=== PATIENT | female | born 1985 | race American Indian/Alaskan Native ===

== ENCOUNTER 2019-12-26 18:37 | Outpatient (CLI) | payer OTHER ==
[2019-12-26 20:42] VITALS: BP 128/57
[2019-12-26] MEDS ORDERED: BICITRA ORAL LIQD 30ML PO ONE (20:43)
[2019-12-26] MEDS ORDERED: SIMETHICONE 80 MG CHEW TAB PO PRN (20:43)
[2019-12-26 21:19] LABS: Bacteria,Urine 2+ /HPF (Negative); Bilirubin,Urine NEG (Negative); Blood,Urine NEG (Negative); Color,Urine Yellow (Yellow); Mucus,Urine FEW /HPF; Protein,Urine <15 mg/dL mg/dL (Negative); Urobilinogen,Urine < 2.0 mg/dL (<2.0)
[2019-12-26] MEDS ORDERED: ACETAMINOPHEN 500 MG TAB PO ONE (21:35)
[2019-12-26] MEDS ORDERED: NITROFURANTOIN MONOHYD/M-CRYST 100 MG CAP PO ONE (21:35)
[2019-12-26 21:42] LABS: Amphetamine Screen,Urine Negative; Benzodiazepines Screen,Urine Negative; Cannabinoid Screen,Urine Negative; Cocaine Screen,Urine Negative; Methadone Screen,Urine Negative; Opiate Screen,Urine Negative
== END 2019-12-26 21:59 | disposition home or self-care (01) ==
LOC: EDSTATUS 19:47 → TRG 19:53 → APU 20:03 → TRG 21:59
PROVIDERS: ATTEND Obstetrics & Gynecology
DX: O26.893 Other specified pregnancy related conditions, third trimester (principal); R10.9 Unspecified abdominal pain; M54.5 Low back pain; Z3A.29 29 weeks gestation of pregnancy
CPT/HCPCS: 59025; 80307; 81001; 87086

== ENCOUNTER 2020-02-17 00:55 | Inpatient (IN) | payer OTHER ==
[2020-02-17] MEDS ORDERED: LACTATED RINGERS 1,000 ML IV ONE (01:35)
[2020-02-17] MEDS ORDERED: AMPICILLIN/NS 2 GM/100 ML 2 GM/100 ML BAG IV ONE (02:03)
[2020-02-17] MEDS ORDERED: OXYTOCIN 10 UNIT/1 ML INJ IM PRN (02:03)
[2020-02-17] MEDS ORDERED: miSOPROStol 200 MCG TAB PR PRN (02:03)
[2020-02-17] MEDS ORDERED: LOPERAMIDE 2 MG CAP PO PRN (02:03)
[2020-02-17] MEDS ORDERED: LIDOCAINE (2%) 20 MG/1 ML VIAL 20 ML MDV INFILTRATI ONE (02:03)
[2020-02-17] MEDS ORDERED: ACETAMINOPHEN 325 MG TAB PO PRN (02:03)
[2020-02-17] MEDS ORDERED: ePHEDrine SULFATE 50 MG/1 ML INJ IV PRN (02:03)
[2020-02-17] MEDS ORDERED: CARBOPROST TROMETHAMINE 250 MCG/1 ML INJ IM PRN (02:03)
[2020-02-17] MEDS ORDERED: MINERAL OIL 30 ML ORAL LIQD PO PRN (02:03)
[2020-02-17] MEDS ORDERED: TERBUTALINE 1 MG/1 ML INJ SUB-Q PRN (02:03)
[2020-02-17 02:18] LABS: Bacteria,Urine 1+ /HPF (Negative); Bilirubin,Urine NEG (Negative); Blood,Urine NEG (Negative); Color,Urine Yellow (Yellow); Mucus,Urine 1+ /HPF
--- NOTE | 2020-02-17 02:18 | History and Physical Report ---
History of Present Illness Date of examination: 02/17/20 Chief complaint: chest pain, concerns about pre-e History of present illness: EDC Confirmation: 03/10/2020 Past History : 6 Term Births: 1 Premature Births: 3 Living Children: 4 Para: 4 Mult. Births: 0 Prev : 0 Prev. attempt? 0 Aborta: 1 Elect. Ab: 1 Spont. Ab: 0 Ectopics: 0 # 1 Delivery date: 1999 Weeks Gestation: 40 Delivery type: Infant Sex: Female weight: 7-13 # 2 Delivery date: 2006 Weeks Gestation: 35 Delivery type: Anesthesia type: epidural Infant Sex: Male weight: 7-15 Comments: IOL - large for dates, PP cardiomyopathy # 3 Delivery date: 2006 Weeks Gestation: 4 Delivery type: EAB Comments: medical # 4 Delivery date: 2007 Weeks Gestation: 35 Delivery type: Anesthesia type: epidural Sex: Male weight: 7-13 Comments: IOL- Pe-E, PP cardiomyopathy # 5 Delivery date: 2014 Weeks Gestation: 32 Delivery type: Infant Sex: Female weight: 9-0 Comments: IOL - large for dates, PP cardiomyopathy Past Medical History: Obesity Cardiomyopathy hx Pre-e w/ previous Past Surgical History: Cholecystectomy (2013) Gangilar cyst (2011) Rotator cuff surgery x 3 Carperal Tunnel Sugery R hand Past Medical History 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 of genital herpes: no Partner hx. of genital herpes: no Varicella/Chicken Pox Status: Unknown TB Risk: no Infection History Comments: Trich Genetic History ADVANCED MATERNAL AGE Congenital Heart Defect: Mom: no Dad: no Pao Disease: Mom: no Dad: no Thalassemia Mom: no Dad: no Neural Tube Defect Mom: no Dad: no Down's Syndrome Mom: no Dad: no Juan-Sachs Mom: no Dad: no Sickle Cell Disease/Trait Mom: no Dad: no Hemophilia Mom: no Dad: no Muscular Dystrophy Mom: no Dad: no Cystic Fibrosis Mom: no Dad: no Jackson Chorea Mom: no Dad: no Mental Retardation Mom: no Dad: no Fragile X Mom: no Dad: no Other Genetic/Chromosomal Disorder Mom: no Dad: no Child w/other defect Mom: no Dad: no Enviromental Exposures Enviromental Exposures Reviewed Xray Exposure: no Medication, drug, or alcohol use since LMP: no Chemical/Other Exposure: no Exposure to Cat Liter: no Hx of Parvovirus (Fifth Disease): no Occupational Exposure to Children: none 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 Allergies (reviewed today): DEMEROL (Critical) MORPHINE (Critical) * BEE STINGS (Critical) PEANUT (Critical) Past History Past Medical History: other (see HPI) Past Surgical History: other (see HPI) 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 Family/Genetic History: other (see HPI) - Obstetrical History Expected Date of Delivery: 03/10/20 Actual Gestation: 36 Week(s) 6 Day(s) : 6 Para: 4 Hx # Term Pregnancies: 1 Number of Pregnancies: 3 Spontaneous Abortions: 0 Induced : 1 Number of Living Children: 4 Medications and Allergies Allergies Allergy/AdvReac Type Severity Reaction Status Date / Time peanut Allergy Intermediate Swelling Verified 12/26/19 20:49 meperidine [From Demerol] Allergy Swelling Verified 02/17/20 03:38 morphine Allergy Itching Verified 02/17/20 03:38 Home Medications Medication Instructions Recorded Confirmed Last Taken Type Nitrofurantoin [place]/M-Cryst 100 mg PO Q12HR #14 capsule 12/26/19 Unknown Rx [Macrobid CAP] Active Meds: Active Medications Acetaminophen (Tylenol) 650 mg PO Q4H PRN PRN Reason: Pain, Mild (1-3) Carboprost Tromethamine (Hemabate) 250 mcg IM ONCE PRN PRN Reason: Uterine Bleeding Ephedrine Sulfate (Ephedrine Sulfate) 10 mg IV Q2M PRN PRN Reason: Hypotension Lactated Ringer's (Lactated Ringers) 1,000 mls @ 999 mls/hr IV BOLUS ONE Stop: 02/17/20 02:35 Lactated Ringer's (Lactated Ringers) 1,000 mls @ 125 mls/hr IV DIRECT MARY Oxytocin/Sodium Chloride (Pitocin/Ns 20 Unit/1000ml Drip) 20 units in 1,000 mls @ 125 mls/hr IV DIRECT MARY Ampicillin Sodium (Ampicillin/Ns 2 Gm/100 Ml) 2 gm in 100 mls @ 100 mls/hr IV ONCE ONE; Protocol Stop: 02/17/20 03:02 Ampicillin Sodium (Ampicillin/Ns 1 Gm/50 Ml) 1 gm in 50 mls @ 100 mls/hr IV Q4HR MARY; Protocol Loperamide HCl (Imodium) 2 mg PO ONCE PRN PRN Reason: give with Hemabate Mineral Oil (Mineral Oil) 30 ml PO QHS PRN PRN Reason: Constipation Misoprostol (Cytotec) 800 mcg [place] ONCE PRN PRN Reason: Uterine Bleeding Oxytocin (Pitocin) 10 unit IM ONCE PRN PRN Reason: Uterine Bleeding Terbutaline Sulfate (Brethine) 0.25 mg SUB-Q ONCE PRN PRN Reason: Hyperstimulation/Hypertonicity Review of Systems All systems: negative - Vital Signs Vital signs: Vital Signs Pulse BP 77 185/81 02/17/20 01:20 02/17/20 01:20 Temp Pulse Resp BP Pulse Ox 99 F 79 18 151/61 97 02/17/20 01:22 02/17/20 02:11 02/17/20 01:22 02/17/20 02:05 02/17/20 02:11 - Physical Exam Breasts: Positive: normal Cardiovascular: Regular rate Lungs: Positive: Clear to auscultation, Normal air movement Abdomen: Positive: normal appearance, soft Genitourinary (Female): Positive: normal external genitalia Vulva: both: normal Vagina: Positive: normal moisture Uterus: Positive: normal size, normal contour Anus/Rectum: Positive: normal perianal skin Extremities: Positive: normal Deep Tendon Reflex Grade: Normal +2 - Obstetrical Uterine Contraction Monitor Mode: External Cervical Dilatation: 3 Cervical Effacement Percentage: 40 station: -4 Uterine Contraction Pattern: Absent Results All other labs normal. Assessment and Plan 34y/o @ 36+6 weeks presents with left sided chest pain that radiates to her back rated 9/10. complicated by obesity, GDM dx in the first trimester, hx pre-e and Cardiomegaly, cardiomyopathy. EFW by AMFM 02/06 was 8#0oz (>99th%). GBS +. bedside u/s verified cephalic presentation, bpp 8/8. Plan to admit for pre-e. Patient asking questions about perusing c/s vs vaginal , advised lead section supervisor did not recommend operative d/t cardiac reasons. she has hx of 9lb vaginal delivery. Plan of care reviewed with patient, advised once all testing comes back the method of delivery can be discussed further. Dr. Nicholson consulted for plan of care. - Patient Problems (1) 36 weeks gestation of Current Visit: Yes Status: Acute (2) BMI 45.0-49.9, adult Current Visit: Yes Status: Acute Plan to address problem: bpp 8, cephalic presentation continuos efm/toco limited by maternal habitus (3) Cardiomyopathy Current Visit: Yes Status: Acute Plan to address problem: Strict I&O Total IVF 75ml/hr CXR and EKG (4) Diet controlled gestational diabetes mellitus (GDM) in third trimester Current Visit: Yes Status: Acute Plan to address problem: GDM diet controlled (5) GBS (group B Streptococcus carrier), +RV culture, currently Current Visit: Yes Status: Acute Plan to address problem: Ampicillin q4hr when in active labor (6) Pre-eclampsia Current Visit: Yes Status: Acute Qualifiers: Trimester: third trimester Qualified Code(s): O14.93 - Unspecified pre- eclampsia, third trimester Plan to address problem: Mag sulfate for neuro protection Mag levels q6hr strict I&O (7) Chest pain Current Visit: Yes Status: Resolved Plan to address problem: EKG and chest x-ray Bictra for acid reflux
[2020-02-17] MEDS ORDERED: OXYTOCIN 20 UNIT/1000ML DRIP 20 UNITS/1,000 ML BAG IV SCH (03:00)
[2020-02-17] MEDS ORDERED: LACTATED RINGERS 1,000 ML IV SCH (03:00)
[2020-02-17] MEDS ORDERED: BICITRA ORAL LIQD 30ML PO ONE (03:04)
[2020-02-17] MEDS ORDERED: MAGNESIUM SULFATE 4 GM/100 ML BAG IV ONE (03:04)
--- NOTE | 2020-02-17 03:27 | Ultrasound Report ---
LIMITED OBSTETRICAL ULTRASOUND. HISTORY: Evaluate biophysical profile and presentation. FINDINGS: A single viable intrauterine has heart tones of 150 bpm. position is vertex. Placenta is anteriorly located. Biophysical profile is normal at 01/26. Amniotic fluid index is normal at 7.8 cm. IMPRESSION: 1. Single viable intrauterine in the vertex presentation. 2. Biophysical profile 01/26. Signer Name: Brody Solitario MD Signed: 02/17/2020 3:22 AM Workstation Name: [id number]
[2020-02-17 03:47] LABS: Hematocrit 23.9 % (30.3-42.9); Hemoglobin 7.8 gm/dl (10.1-14.3); Mean Corpuscular HGB Conc 33 % (30-34); Platelet Count 226 K/mm3 (140-440); Red Blood Count 3.64 M/mm3 (3.65-5.03); Red Cell Distribution Width 19.1 % (13.2-15.2)
[2020-02-17 03:50] LABS: Mean Corpuscular Volume 66 fl (79-97)
--- NOTE | 2020-02-17 03:50 | XRay Report ---
CHEST 1 VIEW INDICATION: chest pain. COMPARISON: None. FINDINGS: Support devices: None. Heart: Moderate cardiomegaly. Lungs/Pleura: No acute air space or interstitial disease. Additional findings: None. IMPRESSION: Moderate cardiomegaly. Signer Name: Brody Solitario MD Signed: 02/17/2020 3:45 AM Workstation Name: [id number]
[2020-02-17 04:02] LABS: Alanine Aminotransferase 21 units/L (7-56)
[2020-02-17 04:03] LABS: Alanine Aminotransferase 22 units/L (7-56); Albumin 3.2 g/dL (3.9-5); Blood Urea Nitrogen 7 mg/dL (7-17); Calcium 8.9 mg/dL (8.4-10.2); Hemolysis Index 7
[2020-02-17 04:04] LABS: BUN/Creatinine Ratio 18
[2020-02-17 04:19] LABS: Uric Acid 5.6 mg/dL (3.5-7.6)
[2020-02-17] MEDS: MAGNESIUM SULFATE 40GM/1000ML 40 GM/1,000 ML BAG IV SCH ×2 (04:32→22:42)
[2020-02-17] MEDS ORDERED: hydrALAZINE 20 MG/1 ML INJ IV ONE ×2 (06:18→11:07)
[2020-02-17] MEDS ORDERED: fentaNYL 100 MCG/2 ML INJ IV ONE (06:28)
--- NOTE | 2020-02-17 06:41 | Event Note ---
Date: 02/17/20 cxr shows moderate cardiomegaly, waiting on EKG results. Patient states pain in left upper chest/shoulder/back went away but has now returned. b/p remains elevated - ordered dose of labetalol IV. after further discussion, patient states she would like to try for vaginal .
[2020-02-17] MEDS: AMPICILLIN/NS 1 GM/50 ML 1 GM/50 ML BAG IV SCH ×4 (08:56→21:12)
[2020-02-17] MEDS ORDERED: OXYTOCIN DRIP 30 UNITS/500 ML BAG IV SCH (09:00)
[2020-02-17] MEDS ORDERED: fentaNYL 100 MCG/2 ML INJ ONE (09:08)
--- NOTE | 2020-02-17 09:13 | Progress Note ---
Assessment and Plan Pt is a 34 y.o. @ 36, wks who presented to L&D after having chest pain and concerns for pre e. IOL was scheduled for February 17, but now will proceed with IOL. [facility] consulted, Dr. Scott and will come and evaluate patient at bedside. Consulted with Dr. Mark and will start pitocin, and get cardiac enzymes. EKG already ordered and a call placed for it to be completed. Will continue to monitor blood pressures and progress of labor. Plan of care explained to pt and RN taking care of pt and they both verbalized understanding. Subjective - Subjective Date of service: 02/17/20 (Continues to have chest pain) Principal diagnosis: IUP @ 36 wks, pre e, on mag, hx of cardiomyopathy Objective - Vital Signs Vital Signs: Vital Signs - 12hr 02/17/20 02/17/20 02/17/20 01:20 01:21 01:22 Temperature 99 F Pulse Rate 77 73 76 Respiratory 18 Rate Blood Pressure 185/81 Blood Pressure 185/81 [Left] O2 Sat by Pulse 99 99 Oximetry 02/17/20 02/17/20 02/17/20 01:26 01:31 01:35 Temperature Pulse Rate 73 96 H 73 Respiratory Rate Blood Pressure 164/71 Blood Pressure [Left] O2 Sat by Pulse 99 99 Oximetry 02/17/20 02/17/20 02/17/20 01:36 01:41 01:46 Temperature Pulse Rate 71 74 72 Respiratory Rate Blood Pressure Blood Pressure [Left] O2 Sat by Pulse 100 99 99 Oximetry 02/17/20 02/17/20 02/17/20 01:50 01:51 01:56 Temperature Pulse Rate 67 75 79 Respiratory Rate Blood Pressure 166/71 Blood Pressure [Left] O2 Sat by Pulse 100 98 Oximetry 02/17/20 02/17/20 02/17/20 02:01 02:05 02:06 Temperature Pulse Rate 78 73 80 Respiratory Rate Blood Pressure 151/61 Blood Pressure [Left] O2 Sat by Pulse 98 99 Oximetry 02/17/20 02/17/20 02/17/20 02:11 04:06 04:08 Temperature Pulse Rate 79 71 76 Respiratory Rate Blood Pressure 190/91 Blood Pressure [Left] O2 Sat by Pulse 97 97 Oximetry 02/17/20 02/17/20 02/17/20 04:13 04:14 04:18 Temperature Pulse Rate 79 80 79 Respiratory Rate Blood Pressure 176/82 Blood Pressure [Left] O2 Sat by Pulse 97 97 Oximetry 02/17/20 02/17/20 02/17/20 04:19 04:23 04:28 Temperature Pulse Rate 79 79 82 Respiratory Rate Blood Pressure 183/85 Blood Pressure [Left] O2 Sat by Pulse 99 99 Oximetry 02/17/20 02/17/20 02/17/20 04:29 04:33 04:38 Temperature Pulse Rate 80 76 106 H Respiratory Rate Blood Pressure 168/75 195/94 Blood Pressure [Left] O2 Sat by Pulse 99 99 Oximetry 02/17/20 02/17/20 02/17/20 04:43 04:48 04:53 Temperature Pulse Rate 73 73 89 Respiratory Rate Blood Pressure Blood Pressure [Left] O2 Sat by Pulse 100 100 98 Oximetry 02/17/20 02/17/20 02/17/20 04:58 05:03 05:08 Temperature Pulse Rate 80 75 79 Respiratory Rate Blood Pressure Blood Pressure [Left] O2 Sat by Pulse 98 99 99 Oximetry 02/17/20 02/17/20 02/17/20 05:12 05:13 05:18 Temperature Pulse Rate 76 91 H 78 Respiratory Rate Blood Pressure 218/93 Blood Pressure [Left] O2 Sat by Pulse 99 99 Oximetry 02/17/20 02/17/20 02/17/20 05:23 05:27 05:28 Temperature Pulse Rate 75 75 77 Respiratory Rate Blood Pressure 193/85 Blood Pressure [Left] O2 Sat by Pulse 98 95 Oximetry 02/17/20 02/17/20 02/17/20 05:29 05:33 05:38 Temperature Pulse Rate 84 91 H 75 Respiratory Rate Blood Pressure Blood Pressure [Left] O2 Sat by Pulse 94 98 97 Oximetry 02/17/20 02/17/20 02/17/20 05:43 05:47 05:48 Temperature Pulse Rate 75 80 82 Respiratory Rate Blood Pressure 204/89 Blood Pressure [Left] O2 Sat by Pulse 98 94 96 Oximetry 02/17/20 02/17/20 02/17/20 05:52 05:53 05:57 Temperature Pulse Rate 81 77 77 Respiratory Rate Blood Pressure 185/88 Blood Pressure [Left] O2 Sat by Pulse 94 95 Oximetry 02/17/20 02/17/20 02/17/20 05:58 05:59 06:03 Temperature Pulse Rate 75 80 73 Respiratory Rate Blood Pressure Blood Pressure [Left] O2 Sat by Pulse 96 91 97 Oximetry 02/17/20 02/17/20 02/17/20 06:08 06:13 06:14 Temperature Pulse Rate 78 75 72 Respiratory Rate Blood Pressure 208/88 Blood Pressure [Left] O2 Sat by Pulse 95 97 94 Oximetry 02/17/20 02/17/20 02/17/20 06:16 06:18 06:23 Temperature Pulse Rate 77 74 72 Respiratory Rate Blood Pressure 182/81 Blood Pressure [Left] O2 Sat by Pulse 98 99 Oximetry 02/17/20 02/17/20 02/17/20 06:27 06:28 06:33 Temperature Pulse Rate 75 77 77 Respiratory Rate Blood Pressure 198/89 Blood Pressure [Left] O2 Sat by Pulse 99 99 Oximetry 02/17/20 02/17/20 02/17/20 06:38 06:42 06:43 Temperature Pulse Rate 86 81 77 Respiratory Rate Blood Pressure 192/78 192/78 Blood Pressure [Left] O2 Sat by Pulse 100 97 Oximetry 02/17/20 02/17/20 02/17/20 06:48 06:53 06:57 Temperature Pulse Rate 74 77 80 Respiratory Rate Blood Pressure 197/79 Blood Pressure [Left] O2 Sat by Pulse 99 100 Oximetry 02/17/20 02/17/20 02/17/20 06:58 07:03 07:08 Temperature 98.4 F Pulse Rate 76 78 79 Respiratory 22 Rate Blood Pressure Blood Pressure 166/74 [Left] O2 Sat by Pulse 98 97 98 Oximetry 02/17/20 02/17/20 02/17/20 07:13 07:18 07:23 Temperature Pulse Rate 81 77 76 Respiratory Rate Blood Pressure Blood Pressure [Left] O2 Sat by Pulse 98 100 99 Oximetry 02/17/20 02/17/20 02/17/20 07:28 07:29 07:33 Temperature Pulse Rate 83 79 81 Respiratory Rate Blood Pressure 219/103 168/78 Blood Pressure [Left] O2 Sat by Pulse 99 100 Oximetry 02/17/20 02/17/20 02/17/20 07:38 07:41 07:43 Temperature Pulse Rate 93 H 81 82 Respiratory Rate Blood Pressure 166/74 Blood Pressure [Left] O2 Sat by Pulse 98 98 Oximetry 02/17/20 02/17/20 02/17/20 07:48 07:50 07:53 Temperature Pulse Rate 74 84 79 Respiratory Rate Blood Pressure Blood Pressure [Left] O2 Sat by Pulse 96 91 99 Oximetry 02/17/20 02/17/20 02/17/20 07:56 07:57 07:58 Temperature Pulse Rate 77 74 83 Respiratory Rate Blood Pressure 181/84 Blood Pressure [Left] O2 Sat by Pulse 94 95 Oximetry 02/17/20 02/17/20 02/17/20 08:03 08:04 08:08 Temperature Pulse Rate 70 77 73 Respiratory Rate Blood Pressure Blood Pressure [Left] O2 Sat by Pulse 97 93 94 Oximetry 02/17/20 02/17/20 02/17/20 08:12 08:13 08:18 Temperature Pulse Rate 75 88 81 Respiratory Rate Blood Pressure 152/72 Blood Pressure [Left] O2 Sat by Pulse 93 95 98 Oximetry 02/17/20 02/17/20 02/17/20 08:23 08:27 08:28 Temperature Pulse Rate 88 81 78 Respiratory Rate Blood Pressure 160/75 Blood Pressure [Left] O2 Sat by Pulse 98 99 Oximetry 02/17/20 02/17/20 02/17/20 08:33 08:38 08:41 Temperature Pulse Rate 80 91 H 74 Respiratory Rate Blood Pressure 172/80 Blood Pressure [Left] O2 Sat by Pulse 98 99 91 Oximetry 02/17/20 02/17/20 02/17/20 08:43 08:46 08:48 Temperature Pulse Rate 85 88 84 Respiratory Rate Blood Pressure Blood Pressure [Left] O2 Sat by Pulse 100 93 99 Oximetry 02/17/20 02/17/20 02/17/20 08:53 08:57 08:58 Temperature Pulse Rate 82 82 82 Respiratory Rate Blood Pressure 176/81 Blood Pressure [Left] O2 Sat by Pulse 97 98 Oximetry 02/17/20 02/17/20 09:03 09:08 Temperature Pulse Rate 83 87 Respiratory Rate Blood Pressure Blood Pressure [Left] O2 Sat by Pulse 98 98 Oximetry - Exam Breasts: deferred Cardiovascular: Regular rate, Normal S1, Normal S2 Lungs: Clear to auscultation Abdomen: Present: normal appearance, soft Vulva: both: normal Uterus: Present: normal FHR: auscultation normal Uterine Contraction Monitor Mode: External Cervical Dilatation: 3 Cervical Effacement Percentage: 40 station: -4 Uterine Contraction Pattern: Regular Uterine Contraction Intensity: Mild Extremities: edema (+1 to +2) Deep Tendon Reflex Grade: Normal +2 - Labs Labs: Abnormal Labs 02/17/20 02/17/20 02/17/20 03:25 03:25 03:25 RBC 3.64 L Hgb 7.8 L Hct 23.9 L MCV 66 L MCH 22 L RDW 19.1 H Potassium 3.5 L Creatinine 0.4 L 0.4 L Glucose 111 H Lactate Dehydrogenase 266 H Total Protein 6.0 L Albumin 3.2 L Laboratory Results - last 24 hr 02/17/20 02/17/20 02/17/20 01:22 03:25 03:25 WBC 6.3 RBC 3.64 L Hgb 7.8 L Hct 23.9 L MCV 66 L MCH 22 L MCHC 33 RDW 19.1 H Plt Count 226 Sodium Potassium Chloride Carbon Dioxide Anion Gap BUN Creatinine Estimated GFR BUN/Creatinine Ratio Glucose Uric Acid Calcium Total Bilirubin AST ALT Alkaline Phosphatase Lactate Dehydrogenase Total Protein Albumin Albumin/Globulin Ratio Urine Color Yellow Urine Turbidity Clear Urine pH 6.0 Ur Specific [place] 1.021 Urine Protein 100 mg/dl Urine Glucose (UA) Neg Urine Ketones Neg Urine Blood Neg Urine Nitrite Neg Urine Bilirubin Neg Urine Urobilinogen 4.0 Ur Leukocyte Esterase Lg Urine WBC (Auto) 5.0 Urine RBC (Auto) 4.0 U Epithel Cells (Auto) 4.0 Urine Bacteria (Auto) 1+ Urine Mucus 1+ Syphilis IgG Antibody Blood Type A POSITIVE Antibody Screen Negative 02/17/20 02/17/20 02/17/20 03:25 03:25 03:25 WBC RBC Hgb Hct MCV MCH MCHC RDW Plt Count Sodium 138 Potassium 3.5 L Chloride 102.8 Carbon Dioxide 22 Anion Gap 17 BUN 7 Creatinine 0.4 L 0.4 L Estimated GFR > 60 > 60 BUN/Creatinine Ratio 18 Glucose 111 H Uric Acid 5.6 Calcium 8.9 Total Bilirubin 0.30 AST 28 27 ALT 21 22 Alkaline Phosphatase 97 Lactate Dehydrogenase 266 H Total Protein 6.0 L Albumin 3.2 L Albumin/Globulin Ratio 1.1 Urine Color Urine Turbidity Urine pH Ur Specific [place] Urine Protein Urine Glucose (UA) Urine Ketones Urine Blood Urine Nitrite Urine Bilirubin Urine Urobilinogen Ur Leukocyte Esterase Urine WBC (Auto) Urine RBC (Auto) U Epithel Cells (Auto) Urine Bacteria (Auto) Urine Mucus Syphilis IgG Antibody Nonreactive Blood Type Antibody Screen
--- NOTE | 2020-02-17 09:28 | Event Note ---
Date: 02/17/20 (Dr. Scott at bedside.) Dr. Scott with [facility] at bedside evaluating patient. States that labs and EKG reviewed and nothing acute seen. Okay for patient to have a vaginal delivery.
--- NOTE | 2020-02-17 09:41 | Consultation ---
History of Present Illness Consult date: 02/17/20 Consult reason: chest pain History of present illness: Patient seen in Labor delivery, brought in early for pre-eclampsia. HTN being managed effectively so far with IV labetalol per protocol. She has atypical, sharp left sided over left breast, continuous since yesterday, nonradiating, improved with analgesics, reproducible to palpation. No prior history of CAD, has had HTN issues with prior pregnancies that have all resolved after delivery. EKG shows sinus LVH (left ventricular hypertrophy), CXR shows cardiomegaly compatible with LVH on ECG. No edema seen. No CHF by exam, cardiac exam including pulses are normal Trop pending. Plan No evidence of acute cardiac process at this time. No CHF or ischemic changes. Advise proceed with delivery Control BP with labetalol IV, transition to PO if necessary after delivery. Control CP with analgesics. Will see PRN Past History Past Medical History: hypertension Social history: denies: smoking Medications and Allergies Allergies Allergy/AdvReac Type Severity Reaction Status Date / Time peanut Allergy Intermediate Swelling Verified 12/26/19 20:49 meperidine [From Demerol] Allergy Swelling Verified 02/17/20 03:38 morphine Allergy Itching Verified 02/17/20 03:38 Home Medications Medication Instructions Recorded Confirmed Last Taken Type Iron 1 tab PO DAILY 02/17/20 02/17/20 3 Days Ago History ~02/14/20 Vitamin 1 tab PO DAILY 02/17/20 02/17/20 2 Days Ago History ~02/15/20 Active Meds: Active Medications Acetaminophen (Tylenol) 650 mg PO Q4H PRN PRN Reason: Pain, Mild (1-3) Carboprost Tromethamine (Hemabate) 250 mcg IM ONCE PRN PRN Reason: Uterine Bleeding Ephedrine Sulfate (Ephedrine Sulfate) 10 mg IV Q2M PRN PRN Reason: Hypotension Lactated Ringer's (Lactated Ringers) 1,000 mls @ 25 mls/hr IV DIRECT MARY Last Admin: 02/17/20 04:33 Dose: 25 mls/hr Documented by: Oxytocin/Sodium Chloride (Pitocin/Ns 20 Unit/1000ml Drip) 20 units in 1,000 mls @ 125 mls/hr IV DIRECT MARY Ampicillin Sodium (Ampicillin/Ns 1 Gm/50 Ml) 1 gm in 50 mls @ 100 mls/hr IV Q4HR MARY; Protocol Last Admin: 02/17/20 08:56 Dose: 100 mls/hr Documented by: Magnesium Sulfate (Magnesium Sulfate 40gm/1000ml) 40 gm in 1,000 mls @ 50 mls/hr IV DIRECT MARY Last Admin: 02/17/20 04:32 Dose: 2 gm/hr, 50 mls/hr Documented by: Oxytocin/Sodium Chloride (Pitocin/Ns 30 Unit/500ml) 30 units in 500 mls @ 2 mls/hr IV TITR MARY; Protocol Last Titration: 02/17/20 09:29 Dose: 4 mls/hr, 4 mls/hr Documented by: Loperamide HCl (Imodium) 2 mg PO ONCE PRN PRN Reason: give with Hemabate Mineral Oil (Mineral Oil) 30 ml PO QHS PRN PRN Reason: Constipation Misoprostol (Cytotec) 800 mcg [place] ONCE PRN PRN Reason: Uterine Bleeding Oxytocin (Pitocin) 10 unit IM ONCE PRN PRN Reason: Uterine Bleeding Terbutaline Sulfate (Brethine) 0.25 mg SUB-Q ONCE PRN PRN Reason: Hyperstimulation/Hypertonicity Review of Systems All systems: negative (Nothing further from CV standpoint.) Physical Examination Vital Signs Pulse BP 77 185/81 02/17/20 01:20 02/17/20 01:20 General appearance: no acute distress Neck: Positive: neck supple Cardiac: Positive: Reg Rate and Rhythm, S1/S2. Negative: Gallop Lungs: Positive: Normal Exam Neuro: Positive: Grossly Intact Abdomen: Positive: Soft. Negative: Pulsations/Bruits Results 02/17/20 03:25 02/17/20 03:25 Cardiac Enzymes 02/17/20 02/17/20 Range/Units 03:25 03:25 AST 28 27 (5-40) units/L Lactate Dehydrogenase 266 H (91-180) units/L CBC 02/17/20 Range/Units 03:25 WBC 6.3 (4.5-11.0) K/mm3 RBC 3.64 L (3.65-5.03) M/mm3 Hgb 7.8 L (10.1-14.3) gm/dl Hct 23.9 L (30.3-42.9) % Plt Count 226 (140-440) K/mm3 Comprehensive Metabolic Panel 02/17/20 02/17/20 Range/Units 03:25 03:25 Sodium 138 (137-145) mmol/L Potassium 3.5 L (3.6-5.0) mmol/L Chloride 102.8 (98-107) mmol/L Carbon Dioxide 22 (22-30) mmol/L BUN 7 (7-17) mg/dL Creatinine 0.4 L 0.4 L (0.6-1.2) mg/dL Glucose 111 H (65-100) mg/dL Calcium 8.9 (8.4-10.2) mg/dL AST 28 27 (5-40) units/L ALT 21 22 (7-56) units/L Alkaline Phosphatase 97 (35-129) units/L Total Protein 6.0 L (6.3-8.2) g/dL Albumin 3.2 L (3.9-5) g/dL EKG interpretations - EKG Sinus rhythms and dysrhythmias: sinus rhythm Chamber hypertrophy or enlargement: left ventricular hypertro
--- NOTE | 2020-02-17 10:30 | Event Note ---
Date: 02/17/20 Provider at beside to answer any questions pt has regarding plan of care. Pt seen by cardiology with thanks. She does desire an epidural. I advised that she will be seen by anesthesia and consulted at that time for placement. She does not desire it at this time but does c/o feeling contractions. I d/w diagnosis of sever pre E and need for magnesium post as well as close management of her fluid intake given previous h/o cardiac issues as per the pt. Pt expressed understanding and agrees with the plan of care and has no questions at this time.
[2020-02-17] MEDS ORDERED: fentaNYL 100 MCG/2 ML INJ IV PRN (11:55)
[2020-02-17] MEDS: ACETAMINOPHEN 500 MG TAB PO PRN ×2 (14:31→21:16)
--- NOTE | 2020-02-17 15:34 | Progress Note ---
Assessment and Plan A: 34 y.o. @ 36+ wks, IOL d/t pre e, GDM (diet controlled), Feeling some ctxs. Cervical exam /-4. P: Continue with Pitocin per protocol. Reassess labor as needed. Subjective - Subjective Date of service: 02/17/20 (Pt feeling some ctxs) Principal diagnosis: IUP, IOL @ 36 wks, pre e, on mag, hx of cardiomyopathy Objective - Vital Signs Vital Signs: Vital Signs - 12hr 02/17/20 02/17/20 02/17/20 04:06 04:08 04:13 Temperature Pulse Rate 71 76 79 Respiratory Rate Blood Pressure 190/91 Blood Pressure [Left] O2 Sat by Pulse 97 97 Oximetry 02/17/20 02/17/20 02/17/20 04:14 04:18 04:19 Temperature Pulse Rate 80 79 79 Respiratory Rate Blood Pressure 176/82 183/85 Blood Pressure [Left] O2 Sat by Pulse 97 Oximetry 02/17/20 02/17/20 02/17/20 04:23 04:28 04:29 Temperature Pulse Rate 79 82 80 Respiratory Rate Blood Pressure 168/75 Blood Pressure [Left] O2 Sat by Pulse 99 99 Oximetry 02/17/20 02/17/20 02/17/20 04:33 04:38 04:43 Temperature Pulse Rate 76 106 H 73 Respiratory Rate Blood Pressure 195/94 Blood Pressure [Left] O2 Sat by Pulse 99 99 100 Oximetry 02/17/20 02/17/20 02/17/20 04:48 04:53 04:58 Temperature Pulse Rate 73 89 80 Respiratory Rate Blood Pressure Blood Pressure [Left] O2 Sat by Pulse 100 98 98 Oximetry 02/17/20 02/17/20 02/17/20 05:03 05:08 05:12 Temperature Pulse Rate 75 79 76 Respiratory Rate Blood Pressure 218/93 Blood Pressure [Left] O2 Sat by Pulse 99 99 Oximetry 02/17/20 02/17/20 02/17/20 05:13 05:18 05:23 Temperature Pulse Rate 91 H 78 75 Respiratory Rate Blood Pressure Blood Pressure [Left] O2 Sat by Pulse 99 99 98 Oximetry 02/17/20 02/17/20 02/17/20 05:27 05:28 05:29 Temperature Pulse Rate 75 77 84 Respiratory Rate Blood Pressure 193/85 Blood Pressure [Left] O2 Sat by Pulse 95 94 Oximetry 02/17/20 02/17/20 02/17/20 05:33 05:38 05:43 Temperature Pulse Rate 91 H 75 75 Respiratory Rate Blood Pressure 204/89 Blood Pressure [Left] O2 Sat by Pulse 98 97 98 Oximetry 02/17/20 02/17/20 02/17/20 05:47 05:48 05:52 Temperature Pulse Rate 80 82 81 Respiratory Rate Blood Pressure Blood Pressure [Left] O2 Sat by Pulse 94 96 94 Oximetry 02/17/20 02/17/20 02/17/20 05:53 05:57 05:58 Temperature Pulse Rate 77 77 75 Respiratory Rate Blood Pressure 185/88 Blood Pressure [Left] O2 Sat by Pulse 95 96 Oximetry 02/17/20 02/17/20 02/17/20 05:59 06:03 06:08 Temperature Pulse Rate 80 73 78 Respiratory Rate Blood Pressure Blood Pressure [Left] O2 Sat by Pulse 91 97 95 Oximetry 02/17/20 02/17/20 02/17/20 06:13 06:14 06:16 Temperature Pulse Rate 75 72 77 Respiratory Rate Blood Pressure 208/88 182/81 Blood Pressure [Left] O2 Sat by Pulse 97 94 Oximetry 02/17/20 02/17/20 02/17/20 06:18 06:23 06:27 Temperature Pulse Rate 74 72 75 Respiratory Rate Blood Pressure 198/89 Blood Pressure [Left] O2 Sat by Pulse 98 99 Oximetry 02/17/20 02/17/20 02/17/20 06:28 06:33 06:38 Temperature Pulse Rate 77 77 86 Respiratory Rate Blood Pressure Blood Pressure [Left] O2 Sat by Pulse 99 99 100 Oximetry 02/17/20 02/17/20 02/17/20 06:42 06:43 06:48 Temperature Pulse Rate 81 77 74 Respiratory Rate Blood Pressure 192/78 192/78 Blood Pressure [Left] O2 Sat by Pulse 97 99 Oximetry 02/17/20 02/17/20 02/17/20 06:53 06:57 06:58 Temperature Pulse Rate 77 80 76 Respiratory Rate Blood Pressure 197/79 Blood Pressure [Left] O2 Sat by Pulse 100 98 Oximetry 02/17/20 02/17/20 02/17/20 07:03 07:08 07:13 Temperature 98.4 F Pulse Rate 78 79 81 Respiratory 22 Rate Blood Pressure Blood Pressure 166/74 [Left] O2 Sat by Pulse 97 98 98 Oximetry 02/17/20 02/17/20 02/17/20 07:18 07:23 07:28 Temperature Pulse Rate 77 76 83 Respiratory Rate Blood Pressure 219/103 Blood Pressure [Left] O2 Sat by Pulse 100 99 99 Oximetry 02/17/20 02/17/20 02/17/20 07:29 07:33 07:38 Temperature Pulse Rate 79 81 93 H Respiratory Rate Blood Pressure 168/78 Blood Pressure [Left] O2 Sat by Pulse 100 98 Oximetry 02/17/20 02/17/20 02/17/20 07:41 07:43 07:48 Temperature Pulse Rate 81 82 74 Respiratory Rate Blood Pressure 166/74 Blood Pressure [Left] O2 Sat by Pulse 98 96 Oximetry 02/17/20 02/17/20 02/17/20 07:50 07:53 07:56 Temperature Pulse Rate 84 79 77 Respiratory Rate Blood Pressure 181/84 Blood Pressure [Left] O2 Sat by Pulse 91 99 Oximetry 02/17/20 02/17/20 02/17/20 07:57 07:58 08:03 Temperature Pulse Rate 74 83 70 Respiratory Rate Blood Pressure Blood Pressure [Left] O2 Sat by Pulse 94 95 97 Oximetry 02/17/20 02/17/20 02/17/20 08:04 08:08 08:12 Temperature Pulse Rate 77 73 75 Respiratory Rate Blood Pressure 152/72 Blood Pressure [Left] O2 Sat by Pulse 93 94 93 Oximetry 02/17/20 02/17/20 02/17/20 08:13 08:18 08:23 Temperature Pulse Rate 88 81 88 Respiratory Rate Blood Pressure Blood Pressure [Left] O2 Sat by Pulse 95 98 98 Oximetry 02/17/20 02/17/20 02/17/20 08:27 08:28 08:33 Temperature Pulse Rate 81 78 80 Respiratory Rate Blood Pressure 160/75 Blood Pressure [Left] O2 Sat by Pulse 99 98 Oximetry 02/17/20 02/17/20 02/17/20 08:38 08:41 08:43 Temperature Pulse Rate 91 H 74 85 Respiratory Rate Blood Pressure 172/80 Blood Pressure [Left] O2 Sat by Pulse 99 91 100 Oximetry 02/17/20 02/17/20 02/17/20 08:46 08:48 08:53 Temperature Pulse Rate 88 84 82 Respiratory Rate Blood Pressure Blood Pressure [Left] O2 Sat by Pulse 93 99 97 Oximetry 02/17/20 02/17/20 02/17/20 08:57 08:58 09:03 Temperature Pulse Rate 82 82 83 Respiratory Rate Blood Pressure 176/81 Blood Pressure [Left] O2 Sat by Pulse 98 98 Oximetry 02/17/20 02/17/20 02/17/20 09:08 09:13 09:15 Temperature Pulse Rate 87 85 92 H Respiratory Rate Blood Pressure 167/80 Blood Pressure [Left] O2 Sat by Pulse 98 96 93 Oximetry 02/17/20 02/17/20 02/17/20 09:18 09:20 09:23 Temperature Pulse Rate 86 84 87 Respiratory Rate Blood Pressure Blood Pressure [Left] O2 Sat by Pulse 91 94 97 Oximetry 02/17/20 02/17/20 02/17/20 09:26 09:28 09:29 Temperature Pulse Rate 79 75 87 Respiratory Rate Blood Pressure 169/79 169/79 Blood Pressure [Left] O2 Sat by Pulse 99 Oximetry 02/17/20 02/17/20 02/17/20 09:33 09:34 09:38 Temperature Pulse Rate 85 87 87 Respiratory Rate Blood Pressure Blood Pressure [Left] O2 Sat by Pulse 95 92 96 Oximetry 02/17/20 02/17/20 02/17/20 09:42 09:43 09:46 Temperature Pulse Rate 83 83 85 Respiratory Rate Blood Pressure 149/76 Blood Pressure [Left] O2 Sat by Pulse 96 93 Oximetry 02/17/20 02/17/20 02/17/20 09:48 09:51 09:53 Temperature Pulse Rate 87 88 89 Respiratory Rate Blood Pressure Blood Pressure [Left] O2 Sat by Pulse 93 93 94 Oximetry 02/17/20 02/17/20 02/17/20 09:56 09:58 10:03 Temperature Pulse Rate 85 83 85 Respiratory Rate Blood Pressure 152/70 Blood Pressure [Left] O2 Sat by Pulse 92 99 98 Oximetry 02/17/20 02/17/20 02/17/20 10:06 10:08 10:11 Temperature Pulse Rate 100 H 85 80 Respiratory Rate Blood Pressure 163/77 Blood Pressure [Left] O2 Sat by Pulse 91 99 Oximetry 02/17/20 02/17/20 02/17/20 10:12 10:13 10:18 Temperature Pulse Rate 86 85 86 Respiratory Rate Blood Pressure Blood Pressure [Left] O2 Sat by Pulse 93 93 95 Oximetry 02/17/20 02/17/20 02/17/20 10:21 10:23 10:26 Temperature Pulse Rate 87 90 87 Respiratory Rate Blood Pressure 161/75 Blood Pressure [Left] O2 Sat by Pulse 93 92 92 Oximetry 02/17/20 02/17/20 02/17/20 10:28 10:32 10:33 Temperature Pulse Rate 88 90 88 Respiratory Rate Blood Pressure Blood Pressure [Left] O2 Sat by Pulse 97 91 92 Oximetry 02/17/20 02/17/20 02/17/20 10:38 10:41 10:43 Temperature Pulse Rate 86 82 84 Respiratory Rate Blood Pressure 156/68 Blood Pressure [Left] O2 Sat by Pulse 92 92 Oximetry 02/17/20 02/17/20 02/17/20 10:44 10:48 10:49 Temperature Pulse Rate 84 88 88 Respiratory Rate Blood Pressure Blood Pressure [Left] O2 Sat by Pulse 93 97 93 Oximetry 02/17/20 02/17/20 02/17/20 10:53 10:55 10:56 Temperature Pulse Rate 87 87 86 Respiratory Rate Blood Pressure 170/79 Blood Pressure [Left] O2 Sat by Pulse 92 93 Oximetry 02/17/20 02/17/20 02/17/20 10:58 11:01 11:03 Temperature Pulse Rate 91 H 92 H 89 Respiratory Rate Blood Pressure Blood Pressure [Left] O2 Sat by Pulse 97 92 97 Oximetry 02/17/20 02/17/20 02/17/20 11:08 11:12 11:13 Temperature Pulse Rate 90 84 88 Respiratory Rate Blood Pressure 171/73 Blood Pressure [Left] O2 Sat by Pulse 99 98 Oximetry 02/17/20 02/17/20 02/17/20 11:18 11:23 11:28 Temperature Pulse Rate 90 92 H 92 H Respiratory Rate Blood Pressure 166/83 Blood Pressure [Left] O2 Sat by Pulse 98 99 99 Oximetry 02/17/20 02/17/20 02/17/20 11:33 11:36 11:38 Temperature Pulse Rate 90 87 92 H Respiratory Rate Blood Pressure Blood Pressure [Left] O2 Sat by Pulse 96 92 98 Oximetry 02/17/20 02/17/20 02/17/20 11:41 11:43 11:48 Temperature Pulse Rate 88 89 91 H Respiratory Rate Blood Pressure 164/82 Blood Pressure [Left] O2 Sat by Pulse 99 98 Oximetry 02/17/20 02/17/20 02/17/20 11:53 11:56 11:58 Temperature Pulse Rate 91 H 89 88 Respiratory Rate Blood Pressure 163/80 Blood Pressure [Left] O2 Sat by Pulse 99 100 Oximetry 02/17/20 02/17/20 02/17/20 12:03 12:08 12:11 Temperature Pulse Rate 87 90 86 Respiratory Rate Blood Pressure 157/75 Blood Pressure [Left] O2 Sat by Pulse 98 97 Oximetry 02/17/20 02/17/20 02/17/20 12:13 12:18 12:23 Temperature Pulse Rate 94 H 88 89 Respiratory Rate Blood Pressure Blood Pressure [Left] O2 Sat by Pulse 98 99 98 Oximetry 02/17/20 02/17/20 02/17/20 12:27 12:28 12:32 Temperature Pulse Rate 88 90 83 Respiratory Rate Blood Pressure 145/73 Blood Pressure [Left] O2 Sat by Pulse 91 97 94 Oximetry 02/17/20 02/17/20 02/17/20 12:33 12:38 12:41 Temperature Pulse Rate 85 90 82 Respiratory Rate Blood Pressure 149/74 Blood Pressure [Left] O2 Sat by Pulse 97 93 Oximetry 02/17/20 02/17/20 02/17/20 12:43 12:48 12:49 Temperature Pulse Rate 83 84 89 Respiratory Rate Blood Pressure Blood Pressure [Left] O2 Sat by Pulse 93 97 92 Oximetry 02/17/20 02/17/20 02/17/20 12:53 12:54 12:56 Temperature Pulse Rate 86 90 85 Respiratory Rate Blood Pressure 156/76 Blood Pressure [Left] O2 Sat by Pulse 92 93 Oximetry 02/17/20 02/17/20 02/17/20 12:58 12:59 13:03 Temperature Pulse Rate 82 90 79 Respiratory Rate Blood Pressure Blood Pressure [Left] O2 Sat by Pulse 97 92 96 Oximetry 02/17/20 02/17/20 02/17/20 13:04 13:08 13:11 Temperature Pulse Rate 85 90 83 Respiratory Rate Blood Pressure 156/77 Blood Pressure [Left] O2 Sat by Pulse 93 96 94 Oximetry 02/17/20 02/17/20 02/17/20 13:13 13:18 13:20 Temperature Pulse Rate 94 H 87 87 Respiratory Rate Blood Pressure Blood Pressure [Left] O2 Sat by Pulse 96 97 93 Oximetry 02/17/20 02/17/20 02/17/20 13:23 13:28 13:33 Temperature Pulse Rate 96 H 93 H 85 Respiratory Rate Blood Pressure Blood Pressure [Left] O2 Sat by Pulse 97 99 96 Oximetry 02/17/20 02/17/20 02/17/20 13:38 13:42 13:43 Temperature Pulse Rate 96 H 88 83 Respiratory Rate Blood Pressure 157/85 Blood Pressure [Left] O2 Sat by Pulse 98 93 98 Oximetry 02/17/20 02/17/20 02/17/20 13:47 13:48 13:53 Temperature Pulse Rate 87 88 90 Respiratory Rate Blood Pressure Blood Pressure [Left] O2 Sat by Pulse 93 98 98 Oximetry 02/17/20 02/17/20 02/17/20 13:56 13:58 14:03 Temperature Pulse Rate 86 87 88 Respiratory Rate Blood Pressure 151/77 Blood Pressure [Left] O2 Sat by Pulse 98 98 Oximetry 02/17/20 02/17/20 02/17/20 14:08 14:09 14:12 Temperature Pulse Rate 89 82 82 Respiratory Rate Blood Pressure 166/80 Blood Pressure [Left] O2 Sat by Pulse 95 92 Oximetry 02/17/20 02/17/20 02/17/20 14:13 14:14 14:18 Temperature Pulse Rate 89 88 86 Respiratory Rate Blood Pressure Blood Pressure [Left] O2 Sat by Pulse 96 94 94 Oximetry 02/17/20 02/17/20 02/17/20 14:19 14:23 14:25 Temperature Pulse Rate 80 88 86 Respiratory Rate Blood Pressure Blood Pressure [Left] O2 Sat by Pulse 94 91 94 Oximetry 02/17/20 02/17/20 02/17/20 14:26 14:28 14:31 Temperature Pulse Rate 87 83 82 Respiratory Rate Blood Pressure 165/78 Blood Pressure [Left] O2 Sat by Pulse 97 93 Oximetry 02/17/20 02/17/20 02/17/20 14:33 14:37 14:38 Temperature Pulse Rate 84 80 77 Respiratory Rate Blood Pressure Blood Pressure [Left] O2 Sat by Pulse 97 94 98 Oximetry 02/17/20 02/17/20 02/17/20 14:41 14:42 14:43 Temperature Pulse Rate 85 88 84 Respiratory Rate Blood Pressure 155/73 Blood Pressure [Left] O2 Sat by Pulse 92 94 Oximetry 02/17/20 02/17/20 02/17/20 14:48 14:53 14:54 Temperature Pulse Rate 84 81 86 Respiratory Rate Blood Pressure Blood Pressure [Left] O2 Sat by Pulse 93 96 93 Oximetry 02/17/20 02/17/20 02/17/20 14:56 14:58 14:59 Temperature Pulse Rate 83 81 82 Respiratory Rate Blood Pressure 153/73 Blood Pressure [Left] O2 Sat by Pulse 94 94 Oximetry 02/17/20 02/17/20 02/17/20 15:03 15:04 15:08 Temperature Pulse Rate 84 85 90 Respiratory Rate Blood Pressure Blood Pressure [Left] O2 Sat by Pulse 97 94 98 Oximetry 02/17/20 02/17/20 02/17/20 15:10 15:11 15:14 Temperature Pulse Rate 85 85 86 Respiratory Rate Blood Pressure 148/72 Blood Pressure [Left] O2 Sat by Pulse 92 94 Oximetry 02/17/20 02/17/20 02/17/20 15:15 15:19 15:24 Temperature Pulse Rate 84 90 80 Respiratory Rate Blood Pressure Blood Pressure [Left] O2 Sat by Pulse 93 99 95 Oximetry 02/17/20 02/17/20 02/17/20 15:25 15:27 15:29 Temperature Pulse Rate 89 85 83 Respiratory Rate Blood Pressure 145/73 Blood Pressure [Left] O2 Sat by Pulse 92 96 Oximetry - Exam Breasts: deferred Cardiovascular: Regular rate Lungs: Normal air movement Abdomen: Present: normal appearance, soft Vulva: both: normal Uterus: Present: normal FHR: category 1 Uterine Contraction Monitor Mode: External Cervical Dilatation: 4 Cervical Effacement Percentage: 60 station: -4 Uterine Contraction Frequency (min): 3-5 minutes Uterine Contraction Duration: 60sec Uterine Contraction Pattern: Regular Uterine Tone Measurement Phase: Resting Uterine Contraction Intensity: Moderate Extremities: normal Deep Tendon Reflex Grade: Normal +2 - Labs Labs: Abnormal Labs 02/17/20 02/17/20 02/17/20 03:25 03:25 03:25 RBC 3.64 L Hgb 7.8 L Hct 23.9 L MCV 66 L MCH 22 L RDW 19.1 H Potassium 3.5 L Creatinine 0.4 L 0.4 L Glucose 111 H Magnesium Lactate Dehydrogenase 266 H Total Protein 6.0 L Albumin 3.2 L 02/17/20 09:40 RBC Hgb Hct MCV MCH RDW Potassium Creatinine Glucose Magnesium 3.70 H Lactate Dehydrogenase Total Protein Albumin Laboratory Results - last 24 hr 02/17/20 02/17/20 02/17/20 01:22 03:25 03:25 WBC 6.3 RBC 3.64 L Hgb 7.8 L Hct 23.9 L MCV 66 L MCH 22 L MCHC 33 RDW 19.1 H Plt Count 226 Sodium Potassium Chloride Carbon Dioxide Anion Gap BUN Creatinine Estimated GFR BUN/Creatinine Ratio Glucose Uric Acid Calcium Magnesium Total Bilirubin AST ALT Alkaline Phosphatase Lactate Dehydrogenase Troponin T Total Protein Albumin Albumin/Globulin Ratio Urine Color Yellow Urine Turbidity Clear Urine pH 6.0 Ur Specific [place] 1.021 Urine Protein 100 mg/dl Urine Glucose (UA) Neg Urine Ketones Neg Urine Blood Neg Urine Nitrite Neg Urine Bilirubin Neg Urine Urobilinogen 4.0 Ur Leukocyte Esterase Lg Urine WBC (Auto) 5.0 Urine RBC (Auto) 4.0 U Epithel Cells (Auto) 4.0 Urine Bacteria (Auto) 1+ Urine Mucus 1+ Syphilis IgG Antibody Blood Type A POSITIVE Antibody Screen Negative 02/17/20 02/17/20 02/17/20 03:25 03:25 03:25 WBC RBC Hgb Hct MCV MCH MCHC RDW Plt Count Sodium 138 Potassium 3.5 L Chloride 102.8 Carbon Dioxide 22 Anion Gap 17 BUN 7 Creatinine 0.4 L 0.4 L Estimated GFR > 60 > 60 BUN/Creatinine Ratio 18 Glucose 111 H Uric Acid 5.6 Calcium 8.9 Magnesium Total Bilirubin 0.30 AST 28 27 ALT 21 22 Alkaline Phosphatase 97 Lactate Dehydrogenase 266 H Troponin T Total Protein 6.0 L Albumin 3.2 L Albumin/Globulin Ratio 1.1 Urine Color Urine Turbidity Urine pH Ur Specific [place] Urine Protein Urine Glucose (UA) Urine Ketones Urine Blood Urine Nitrite Urine Bilirubin Urine Urobilinogen Ur Leukocyte Esterase Urine WBC (Auto) Urine RBC (Auto) U Epithel Cells (Auto) Urine Bacteria (Auto) Urine Mucus Syphilis IgG Antibody Nonreactive Blood Type Antibody Screen 02/17/20 02/17/20 09:40 09:40 WBC RBC Hgb Hct MCV MCH MCHC RDW Plt Count Sodium Potassium Chloride Carbon Dioxide Anion Gap BUN Creatinine Estimated GFR BUN/Creatinine Ratio Glucose Uric Acid Calcium Magnesium 3.70 H Total Bilirubin AST ALT Alkaline Phosphatase Lactate Dehydrogenase Troponin T < 0.010 Total Protein Albumin Albumin/Globulin Ratio Urine Color Urine Turbidity Urine pH Ur Specific [place] Urine Protein Urine Glucose (UA) Urine Ketones Urine Blood Urine Nitrite Urine Bilirubin Urine Urobilinogen Ur Leukocyte Esterase Urine WBC (Auto) Urine RBC (Auto) U Epithel Cells (Auto) Urine Bacteria (Auto) Urine Mucus Syphilis IgG Antibody Blood Type Antibody Screen
[2020-02-17] MEDS ORDERED: DEXTROSE 50% IN WATER (25GM) 50 ML SYRINGE IV PRN (15:59)
[2020-02-17] MEDS ORDERED: BUTORPHANOL 2 MG/1 ML INJ ONE (16:37)
[2020-02-17] MEDS ORDERED: BUTORPHANOL 2 MG/1 ML INJ IV ONE (16:40)
[2020-02-17] MEDS ORDERED: PROMETHAZINE 25 MG TAB PO PRN (16:41)
[2020-02-17] MEDS ORDERED: PROMETHAZINE 25 MG TAB ONE (16:41)
--- NOTE | 2020-02-17 17:57 | Event Note ---
Date: 02/17/20 (Called by RN, pt with increased BP's) Called by RN because BP's have increased to ranges of 170-200's/90's. Consulted with Dr. Mark. Plan to add Procardia 60mg PO and monitor blood pressures after administration. If blood pressures are still elevated, then given 10 mg IV Labetalol.
[2020-02-17] MEDS ORDERED: INSULIN REGULAR, HUMAN 100 UNIT/ML 3ML VIAL SUB-Q SCH (18:00)
[2020-02-17] MEDS ORDERED: DEXMEDETOMIDINE 200 MCG/2 ML VIAL IV ONE (18:24)
[2020-02-17] MEDS ORDERED: NalbUPHINE 10 MG/1 ML INJ IV PRN (18:52)
[2020-02-17] MEDS ORDERED: ONDANSETRON 4 MG/2 ML INJ IV PRN (18:52)
[2020-02-17] MEDS ORDERED: NALOXONE 2 MG/2 ML INJ IV PRN (18:52)
[2020-02-17] MEDS ORDERED: diphenhydrAMINE 50 MG/ML VIAL IV PRN (18:52)
--- NOTE | 2020-02-17 18:55 | Anesthesia Consultation ---
Anesthesia Consult and Med Hx Date of service: 02/17/20 - Airway Anesthetic Teeth Evaluation: Good ROM Head & Neck: Adequate Mental/Hyoid Distance: Adequate Mallampati Class: Class III Intubation Access Assessment: Possibly Difficult - Pulmonary Exam CTA: Yes - Cardiac Exam Cardiac Exam: RRR - Pre-Operative Health Status ASA Pre-Surgery Classification: ASA3 Proposed Anesthetic Plan: Epidural - Pulmonary Hx Smoking: No Hx Asthma: Yes COPD: No Hx Pneumonia: No Hx Sleep Apnea: No - Cardiovascular System Hx Hypertension: Yes (pre-eclampsia, h/o PP cardiomyopathy x3) - Central Nervous System Hx Seizures: No Hx Psychiatric Problems: No - Gastrointestinal Hx Gastroesophageal Reflux Disease: No - Endocrine Hx Renal Disease: No Hx End Stage Renal Disease: No Hx Hypothyroidism: No Hx Hyperthyroidism: No - Hematic Hx Anemia: Yes (ON MEDS) Hx Sickle Cell Disease: No - Other Systems Hx Alcohol Use: (NOT DURING ) Hx Obesity: Yes
--- NOTE | 2020-02-17 18:58 | Progress Note ---
Labor Epidural - Labor Epidural Start Time: 18:31 Stop Time: 18:42 Performed by:: REBA CALVIN Procedure: Patient is requesting a laboring epidural for laboring pain. Patient IDed, H&P reviewed, all questions and concerns were answered, and consent was signed. Timeout was performed at bedside. Patient in sitting position. Sterile prep and drape was performed. 3ml of 1% lidocaine skin wheal at L[3]- L [4]. 18- gauge Touhy epidural needle was advanced to loss of resistance at 7cm with air technique. Negative CSF negative blood. Epidural catheter advanced to [14] centimeters. [-] Aspiration [-] test dose. Sterile dressing applied. Patient tolerated procedure.
[2020-02-17] MEDS ORDERED: NIFEdipine XL 60 MG TAB PO SCH (19:00)
[2020-02-17] MEDS: fentaNYL-BUPIV 2 MCG/ML-0.125% 200 MCG/100 ML BAG EPIDURAL SCH (21:16)
--- NOTE | 2020-02-17 22:55 | Progress Note ---
Assessment and Plan 34 y.o. IOL for pre e and GDM. Pt is comfortable with epidural. Cervical exam 60/-3. Her cervical exam has remained unchanged since the last exam. This is after being on 24 mu of Pitocin. Consulted with Dr. Mark and will re- evaluate. Spoke with pt and family member regarding the possibility of a c- section and this will be determined after an evaluation. Pt and family verbalized understanding. Subjective - Subjective Date of service: 02/17/20 (Pt comfortable with epidural) Principal diagnosis: IUP, IOL @ 36 wks, pre e, on mag, hx of cardiomyopathy Objective - Vital Signs Vital Signs: Vital Signs - 12hr 02/17/20 02/17/20 02/17/20 10:53 10:55 10:56 Temperature Pulse Rate 87 87 86 Respiratory Rate Blood Pressure 170/79 O2 Sat by Pulse 92 93 Oximetry 02/17/20 02/17/20 02/17/20 10:58 11:01 11:03 Temperature Pulse Rate 91 H 92 H 89 Respiratory Rate Blood Pressure O2 Sat by Pulse 97 92 97 Oximetry 02/17/20 02/17/20 02/17/20 11:08 11:12 11:13 Temperature Pulse Rate 90 84 88 Respiratory Rate Blood Pressure 171/73 O2 Sat by Pulse 99 98 Oximetry 02/17/20 02/17/20 02/17/20 11:18 11:23 11:28 Temperature Pulse Rate 90 92 H 92 H Respiratory Rate Blood Pressure 166/83 O2 Sat by Pulse 98 99 99 Oximetry 02/17/20 02/17/20 02/17/20 11:33 11:36 11:38 Temperature Pulse Rate 90 87 92 H Respiratory Rate Blood Pressure O2 Sat by Pulse 96 92 98 Oximetry 02/17/20 02/17/20 02/17/20 11:41 11:43 11:48 Temperature Pulse Rate 88 89 91 H Respiratory Rate Blood Pressure 164/82 O2 Sat by Pulse 99 98 Oximetry 02/17/20 02/17/20 02/17/20 11:53 11:56 11:58 Temperature Pulse Rate 91 H 89 88 Respiratory Rate Blood Pressure 163/80 O2 Sat by Pulse 99 100 Oximetry 02/17/20 02/17/20 02/17/20 12:03 12:08 12:11 Temperature Pulse Rate 87 90 86 Respiratory Rate Blood Pressure 157/75 O2 Sat by Pulse 98 97 Oximetry 02/17/20 02/17/20 02/17/20 12:13 12:18 12:23 Temperature Pulse Rate 94 H 88 89 Respiratory Rate Blood Pressure O2 Sat by Pulse 98 99 98 Oximetry 02/17/20 02/17/20 02/17/20 12:27 12:28 12:32 Temperature Pulse Rate 88 90 83 Respiratory Rate Blood Pressure 145/73 O2 Sat by Pulse 91 97 94 Oximetry 02/17/20 02/17/20 02/17/20 12:33 12:38 12:41 Temperature Pulse Rate 85 90 82 Respiratory Rate Blood Pressure 149/74 O2 Sat by Pulse 97 93 Oximetry 02/17/20 02/17/20 02/17/20 12:43 12:48 12:49 Temperature Pulse Rate 83 84 89 Respiratory Rate Blood Pressure O2 Sat by Pulse 93 97 92 Oximetry 02/17/20 02/17/20 02/17/20 12:53 12:54 12:56 Temperature Pulse Rate 86 90 85 Respiratory Rate Blood Pressure 156/76 O2 Sat by Pulse 92 93 Oximetry 02/17/20 02/17/20 02/17/20 12:58 12:59 13:03 Temperature Pulse Rate 82 90 79 Respiratory Rate Blood Pressure O2 Sat by Pulse 97 92 96 Oximetry 02/17/20 02/17/20 02/17/20 13:04 13:08 13:11 Temperature Pulse Rate 85 90 83 Respiratory Rate Blood Pressure 156/77 O2 Sat by Pulse 93 96 94 Oximetry 02/17/20 02/17/20 02/17/20 13:13 13:18 13:20 Temperature Pulse Rate 94 H 87 87 Respiratory Rate Blood Pressure O2 Sat by Pulse 96 97 93 Oximetry 02/17/20 02/17/20 02/17/20 13:23 13:28 13:33 Temperature Pulse Rate 96 H 93 H 85 Respiratory Rate Blood Pressure O2 Sat by Pulse 97 99 96 Oximetry 02/17/20 02/17/20 02/17/20 13:38 13:42 13:43 Temperature Pulse Rate 96 H 88 83 Respiratory Rate Blood Pressure 157/85 O2 Sat by Pulse 98 93 98 Oximetry 02/17/20 02/17/20 02/17/20 13:47 13:48 13:53 Temperature Pulse Rate 87 88 90 Respiratory Rate Blood Pressure O2 Sat by Pulse 93 98 98 Oximetry 02/17/20 02/17/20 02/17/20 13:56 13:58 14:03 Temperature Pulse Rate 86 87 88 Respiratory Rate Blood Pressure 151/77 O2 Sat by Pulse 98 98 Oximetry 02/17/20 02/17/20 02/17/20 14:08 14:09 14:12 Temperature Pulse Rate 89 82 82 Respiratory Rate Blood Pressure 166/80 O2 Sat by Pulse 95 92 Oximetry 02/17/20 02/17/20 02/17/20 14:13 14:14 14:18 Temperature Pulse Rate 89 88 86 Respiratory Rate Blood Pressure O2 Sat by Pulse 96 94 94 Oximetry 02/17/20 02/17/20 02/17/20 14:19 14:23 14:25 Temperature Pulse Rate 80 88 86 Respiratory Rate Blood Pressure O2 Sat by Pulse 94 91 94 Oximetry 02/17/20 02/17/20 02/17/20 14:26 14:28 14:31 Temperature Pulse Rate 87 83 82 Respiratory Rate Blood Pressure 165/78 O2 Sat by Pulse 97 93 Oximetry 02/17/20 02/17/20 02/17/20 14:33 14:37 14:38 Temperature Pulse Rate 84 80 77 Respiratory Rate Blood Pressure O2 Sat by Pulse 97 94 98 Oximetry 02/17/20 02/17/20 02/17/20 14:41 14:42 14:43 Temperature Pulse Rate 85 88 84 Respiratory Rate Blood Pressure 155/73 O2 Sat by Pulse 92 94 Oximetry 02/17/20 02/17/20 02/17/20 14:48 14:53 14:54 Temperature Pulse Rate 84 81 86 Respiratory Rate Blood Pressure O2 Sat by Pulse 93 96 93 Oximetry 02/17/20 02/17/20 02/17/20 14:56 14:58 14:59 Temperature Pulse Rate 83 81 82 Respiratory Rate Blood Pressure 153/73 O2 Sat by Pulse 94 94 Oximetry 02/17/20 02/17/20 02/17/20 15:03 15:04 15:08 Temperature Pulse Rate 84 85 90 Respiratory Rate Blood Pressure O2 Sat by Pulse 97 94 98 Oximetry 02/17/20 02/17/20 02/17/20 15:10 15:11 15:14 Temperature Pulse Rate 85 85 86 Respiratory Rate Blood Pressure 148/72 O2 Sat by Pulse 92 94 Oximetry 02/17/20 02/17/20 02/17/20 15:15 15:19 15:24 Temperature Pulse Rate 84 90 80 Respiratory Rate Blood Pressure O2 Sat by Pulse 93 99 95 Oximetry 02/17/20 02/17/20 02/17/20 15:25 15:27 15:29 Temperature Pulse Rate 89 85 83 Respiratory Rate Blood Pressure 145/73 O2 Sat by Pulse 92 96 Oximetry 02/17/20 02/17/20 02/17/20 15:34 15:38 15:39 Temperature Pulse Rate 79 86 77 Respiratory Rate Blood Pressure O2 Sat by Pulse 96 91 95 Oximetry 02/17/20 02/17/20 02/17/20 15:42 15:44 15:45 Temperature Pulse Rate 82 84 82 Respiratory Rate Blood Pressure 148/80 O2 Sat by Pulse 94 94 Oximetry 02/17/20 02/17/20 02/17/20 15:49 15:50 15:54 Temperature Pulse Rate 87 79 79 Respiratory Rate Blood Pressure O2 Sat by Pulse 97 94 94 Oximetry 02/17/20 02/17/20 02/17/20 15:56 15:59 16:04 Temperature Pulse Rate 78 82 79 Respiratory Rate Blood Pressure 144/73 O2 Sat by Pulse 94 94 96 Oximetry 02/17/20 02/17/20 02/17/20 16:05 16:09 16:10 Temperature Pulse Rate 90 80 85 Respiratory Rate Blood Pressure O2 Sat by Pulse 93 94 93 Oximetry 02/17/20 02/17/20 02/17/20 16:11 16:14 16:16 Temperature Pulse Rate 82 81 86 Respiratory Rate Blood Pressure 147/71 O2 Sat by Pulse 97 94 Oximetry 02/17/20 02/17/20 02/17/20 16:19 16:22 16:24 Temperature Pulse Rate 81 84 83 Respiratory Rate Blood Pressure O2 Sat by Pulse 96 93 95 Oximetry 02/17/20 02/17/20 02/17/20 16:26 16:27 16:29 Temperature Pulse Rate 84 79 82 Respiratory Rate Blood Pressure 149/74 O2 Sat by Pulse 94 93 Oximetry 02/17/20 02/17/20 02/17/20 16:34 16:37 16:39 Temperature Pulse Rate 81 86 84 Respiratory Rate Blood Pressure O2 Sat by Pulse 97 93 98 Oximetry 02/17/20 02/17/20 02/17/20 16:41 16:42 16:44 Temperature Pulse Rate 83 88 87 Respiratory Rate Blood Pressure 156/73 O2 Sat by Pulse 93 97 Oximetry 02/17/20 02/17/20 02/17/20 16:49 16:51 16:54 Temperature Pulse Rate 85 83 83 Respiratory Rate Blood Pressure O2 Sat by Pulse 97 88 88 Oximetry 02/17/20 02/17/20 02/17/20 16:57 16:58 16:59 Temperature Pulse Rate 79 69 78 Respiratory Rate Blood Pressure 148/73 O2 Sat by Pulse 91 91 Oximetry 02/17/20 02/17/20 02/17/20 17:03 17:04 17:09 Temperature Pulse Rate 91 H 82 83 Respiratory Rate Blood Pressure O2 Sat by Pulse 92 94 97 Oximetry 02/17/20 02/17/20 02/17/20 17:11 17:12 17:14 Temperature Pulse Rate 82 78 84 Respiratory Rate Blood Pressure 183/86 O2 Sat by Pulse 94 93 Oximetry 02/17/20 02/17/20 02/17/20 17:16 17:19 17:22 Temperature Pulse Rate 85 81 82 Respiratory Rate Blood Pressure O2 Sat by Pulse 92 98 93 Oximetry 02/17/20 02/17/20 02/17/20 17:24 17:27 17:28 Temperature Pulse Rate 75 78 77 Respiratory Rate Blood Pressure 180/87 O2 Sat by Pulse 98 92 Oximetry 02/17/20 02/17/20 02/17/20 17:29 17:32 17:34 Temperature Pulse Rate 89 78 84 Respiratory Rate Blood Pressure 178/90 O2 Sat by Pulse 92 93 97 Oximetry 02/17/20 02/17/20 02/17/20 17:39 17:42 17:44 Temperature Pulse Rate 81 83 86 Respiratory Rate Blood Pressure 203/92 O2 Sat by Pulse 95 94 Oximetry 02/17/20 02/17/20 02/17/20 17:45 17:49 17:52 Temperature Pulse Rate 85 84 86 Respiratory Rate Blood Pressure O2 Sat by Pulse 94 96 93 Oximetry 02/17/20 02/17/20 02/17/20 17:54 17:58 17:59 Temperature Pulse Rate 89 85 92 H Respiratory Rate Blood Pressure 197/90 O2 Sat by Pulse 92 97 Oximetry 02/17/20 02/17/20 02/17/20 18:04 18:09 18:10 Temperature Pulse Rate 91 H 79 80 Respiratory Rate Blood Pressure O2 Sat by Pulse 97 99 92 Oximetry 02/17/20 02/17/20 02/17/20 18:12 18:14 18:16 Temperature Pulse Rate 81 77 84 Respiratory Rate Blood Pressure 190/87 O2 Sat by Pulse 96 93 Oximetry 02/17/20 02/17/20 02/17/20 18:19 18:22 18:24 Temperature Pulse Rate 79 77 97 H Respiratory Rate Blood Pressure O2 Sat by Pulse 94 94 96 Oximetry 02/17/20 02/17/20 02/17/20 18:29 18:34 18:36 Temperature Pulse Rate 87 82 80 Respiratory Rate Blood Pressure 152/65 O2 Sat by Pulse 98 98 Oximetry 02/17/20 02/17/20 02/17/20 18:39 18:41 18:42 Temperature Pulse Rate 83 82 83 Respiratory Rate Blood Pressure 147/64 147/66 O2 Sat by Pulse 98 Oximetry 02/17/20 02/17/20 02/17/20 18:44 18:47 18:48 Temperature Pulse Rate 81 82 85 Respiratory Rate Blood Pressure 146/68 147/70 152/71 O2 Sat by Pulse 97 Oximetry 02/17/20 02/17/20 02/17/20 18:49 18:53 18:54 Temperature Pulse Rate 83 80 79 Respiratory Rate Blood Pressure O2 Sat by Pulse 98 93 99 Oximetry 02/17/20 02/17/20 02/17/20 18:56 18:59 19:01 Temperature Pulse Rate 77 80 71 Respiratory Rate Blood Pressure 151/70 149/70 O2 Sat by Pulse 97 Oximetry 02/17/20 02/17/20 02/17/20 19:04 19:05 19:09 Temperature Pulse Rate 82 78 86 Respiratory Rate Blood Pressure 151/71 O2 Sat by Pulse 95 93 94 Oximetry 02/17/20 02/17/20 02/17/20 19:10 19:11 19:14 Temperature Pulse Rate 77 80 81 Respiratory Rate Blood Pressure 150/70 O2 Sat by Pulse 93 94 Oximetry 02/17/20 02/17/20 02/17/20 19:15 19:19 19:24 Temperature Pulse Rate 76 80 88 Respiratory Rate Blood Pressure 152/73 O2 Sat by Pulse 98 99 Oximetry 02/17/20 02/17/20 02/17/20 19:26 19:29 19:30 Temperature 98.5 F Pulse Rate 76 75 Respiratory 18 Rate Blood Pressure O2 Sat by Pulse 94 98 Oximetry 02/17/20 02/17/20 02/17/20 19:32 19:33 19:34 Temperature Pulse Rate 75 77 83 Respiratory Rate Blood Pressure 139/72 O2 Sat by Pulse 94 92 Oximetry 02/17/20 02/17/20 02/17/20 19:38 19:39 19:44 Temperature Pulse Rate 75 79 75 Respiratory Rate Blood Pressure O2 Sat by Pulse 93 93 94 Oximetry 02/17/20 02/17/20 02/17/20 19:48 19:49 19:54 Temperature Pulse Rate 78 80 78 Respiratory Rate Blood Pressure 151/67 O2 Sat by Pulse 93 93 Oximetry 02/17/20 02/17/20 02/17/20 19:55 19:59 20:01 Temperature Pulse Rate 80 78 81 Respiratory Rate Blood Pressure O2 Sat by Pulse 94 94 93 Oximetry 02/17/20 02/17/20 02/17/20 20:02 20:04 20:08 Temperature Pulse Rate 85 80 80 Respiratory Rate Blood Pressure 136/65 O2 Sat by Pulse 94 93 Oximetry 02/17/20 02/17/20 02/17/20 20:09 20:14 20:17 Temperature Pulse Rate 82 78 76 Respiratory Rate Blood Pressure 141/69 O2 Sat by Pulse 94 96 Oximetry 02/17/20 02/17/20 02/17/20 20:19 20:20 20:24 Temperature Pulse Rate 76 79 75 Respiratory Rate Blood Pressure O2 Sat by Pulse 93 94 97 Oximetry 02/17/20 02/17/20 02/17/20 20:25 20:29 20:30 Temperature Pulse Rate 78 79 79 Respiratory Rate Blood Pressure O2 Sat by Pulse 94 94 94 Oximetry 02/17/20 02/17/20 02/17/20 20:32 20:34 20:37 Temperature Pulse Rate 83 83 83 Respiratory Rate Blood Pressure 141/69 O2 Sat by Pulse 96 94 Oximetry 02/17/20 02/17/20 02/17/20 20:39 20:44 20:47 Temperature Pulse Rate 93 H 82 81 Respiratory Rate Blood Pressure O2 Sat by Pulse 94 99 93 Oximetry 02/17/20 02/17/20 02/17/20 20:48 20:49 20:53 Temperature Pulse Rate 77 79 83 Respiratory Rate Blood Pressure 154/71 O2 Sat by Pulse 93 92 Oximetry 02/17/20 02/17/20 02/17/20 20:54 20:58 20:59 Temperature Pulse Rate 80 81 81 Respiratory Rate Blood Pressure O2 Sat by Pulse 94 93 94 Oximetry 02/17/20 02/17/20 02/17/20 21:01 21:04 21:09 Temperature Pulse Rate 80 86 83 Respiratory Rate Blood Pressure 158/71 O2 Sat by Pulse 94 96 Oximetry 02/17/20 02/17/20 02/17/20 21:11 21:13 21:14 Temperature Pulse Rate 82 81 92 H Respiratory Rate Blood Pressure 158/71 O2 Sat by Pulse 92 97 Oximetry 02/17/20 02/17/20 02/17/20 21:18 21:19 21:22 Temperature Pulse Rate 83 82 80 Respiratory Rate Blood Pressure 163/79 163/77 O2 Sat by Pulse 96 Oximetry 02/17/20 02/17/20 02/17/20 21:23 21:24 21:26 Temperature Pulse Rate 82 80 81 Respiratory Rate Blood Pressure 166/77 O2 Sat by Pulse 97 93 Oximetry 02/17/20 02/17/20 02/17/20 21:29 21:32 21:33 Temperature Pulse Rate 78 80 78 Respiratory Rate Blood Pressure 155/72 O2 Sat by Pulse 96 93 Oximetry 02/17/20 02/17/20 02/17/20 21:34 21:38 21:39 Temperature Pulse Rate 79 83 79 Respiratory Rate Blood Pressure O2 Sat by Pulse 93 94 94 Oximetry 02/17/20 02/17/20 02/17/20 21:44 21:46 21:49 Temperature Pulse Rate 84 78 80 Respiratory Rate Blood Pressure 149/67 O2 Sat by Pulse 93 95 Oximetry 02/17/20 02/17/20 02/17/20 21:50 21:54 21:59 Temperature Pulse Rate 81 80 83 Respiratory Rate Blood Pressure O2 Sat by Pulse 93 93 93 Oximetry 02/17/20 02/17/20 02/17/20 22:01 22:04 22:05 Temperature Pulse Rate 80 82 80 Respiratory Rate Blood Pressure 146/65 O2 Sat by Pulse 93 94 Oximetry 02/17/20 02/17/20 02/17/20 22:09 22:14 22:16 Temperature Pulse Rate 79 80 80 Respiratory Rate Blood Pressure O2 Sat by Pulse 93 92 94 Oximetry 02/17/20 02/17/20 02/17/20 22:17 22:19 22:21 Temperature Pulse Rate 82 81 82 Respiratory Rate Blood Pressure 142/74 O2 Sat by Pulse 94 94 Oximetry 02/17/20 02/17/20 02/17/20 22:24 22:27 22:29 Temperature Pulse Rate 78 81 80 Respiratory Rate Blood Pressure O2 Sat by Pulse 94 94 94 Oximetry 02/17/20 02/17/20 02/17/20 22:32 22:34 22:39 Temperature Pulse Rate 85 83 84 Respiratory Rate Blood Pressure 141/68 O2 Sat by Pulse 98 99 Oximetry 02/17/20 02/17/20 02/17/20 22:44 22:46 22:49 Temperature Pulse Rate 79 80 78 Respiratory Rate Blood Pressure 134/63 O2 Sat by Pulse 98 97 Oximetry - Exam Breasts: deferred Cardiovascular: Regular rate Lungs: Normal air movement Abdomen: Present: normal appearance, soft Vulva: both: normal Uterus: Present: normal FHR: category 1 Uterine Contraction Monitor Mode: External Cervical Dilatation: 5 Cervical Effacement Percentage: 60 station: -3 Uterine Contraction Pattern: Irregular Uterine Tone Measurement Phase: Resting Uterine Contraction Intensity: Moderate Extremities: edema (Generalized +2 edema. ) Deep Tendon Reflex Grade: Normal +2 - Labs Labs: Abnormal Labs 02/17/20 02/17/20 02/17/20 03:25 03:25 03:25 RBC 3.64 L Hgb 7.8 L Hct 23.9 L MCV 66 L MCH 22 L RDW 19.1 H Potassium 3.5 L Creatinine 0.4 L 0.4 L Glucose 111 H POC Glucose Magnesium Lactate Dehydrogenase 266 H Total Protein 6.0 L Albumin 3.2 L 02/17/20 02/17/20 02/17/20 09:40 15:30 16:19 RBC Hgb Hct MCV MCH RDW Potassium Creatinine Glucose POC Glucose 114 H Magnesium 3.70 H 4.20 H Lactate Dehydrogenase Total Protein Albumin 02/17/20 20:40 RBC Hgb Hct MCV MCH RDW Potassium Creatinine Glucose POC Glucose Magnesium 4.50 H Lactate Dehydrogenase Total Protein Albumin Laboratory Results - last 24 hr 02/17/20 02/17/20 02/17/20 01:22 03:25 03:25 WBC 6.3 RBC 3.64 L Hgb 7.8 L Hct 23.9 L MCV 66 L MCH 22 L MCHC 33 RDW 19.1 H Plt Count 226 Sodium Potassium Chloride Carbon Dioxide Anion Gap BUN Creatinine Estimated GFR BUN/Creatinine Ratio Glucose POC Glucose Uric Acid Calcium Magnesium Total Bilirubin AST ALT Alkaline Phosphatase Lactate Dehydrogenase Troponin T Total Protein Albumin Albumin/Globulin Ratio Urine Color Yellow Urine Turbidity Clear Urine pH 6.0 Ur Specific [place] 1.021 Urine Protein 100 mg/dl Urine Glucose (UA) Neg Urine Ketones Neg Urine Blood Neg Urine Nitrite Neg Urine Bilirubin Neg Urine Urobilinogen 4.0 Ur Leukocyte Esterase Lg Urine WBC (Auto) 5.0 Urine RBC (Auto) 4.0 U Epithel Cells (Auto) 4.0 Urine Bacteria (Auto) 1+ Urine Mucus 1+ Syphilis IgG Antibody Blood Type A POSITIVE Antibody Screen Negative 02/17/20 02/17/20 02/17/20 03:25 03:25 03:25 WBC RBC Hgb Hct MCV MCH MCHC RDW Plt Count Sodium 138 Potassium 3.5 L Chloride 102.8 Carbon Dioxide 22 Anion Gap 17 BUN 7 Creatinine 0.4 L 0.4 L Estimated GFR > 60 > 60 BUN/Creatinine Ratio 18 Glucose 111 H POC Glucose Uric Acid 5.6 Calcium 8.9 Magnesium Total Bilirubin 0.30 AST 28 27 ALT 21 22 Alkaline Phosphatase 97 Lactate Dehydrogenase 266 H Troponin T Total Protein 6.0 L Albumin 3.2 L Albumin/Globulin Ratio 1.1 Urine Color Urine Turbidity Urine pH Ur Specific [place] Urine Protein Urine Glucose (UA) Urine Ketones Urine Blood Urine Nitrite Urine Bilirubin Urine Urobilinogen Ur Leukocyte Esterase Urine WBC (Auto) Urine RBC (Auto) U Epithel Cells (Auto) Urine Bacteria (Auto) Urine Mucus Syphilis IgG Antibody Nonreactive Blood Type Antibody Screen 02/17/20 02/17/20 02/17/20 09:40 09:40 15:30 WBC RBC Hgb Hct MCV MCH MCHC RDW Plt Count Sodium Potassium Chloride Carbon Dioxide Anion Gap BUN Creatinine Estimated GFR BUN/Creatinine Ratio Glucose POC Glucose Uric Acid Calcium Magnesium 3.70 H 4.20 H Total Bilirubin AST ALT Alkaline Phosphatase Lactate Dehydrogenase Troponin T < 0.010 Total Protein Albumin Albumin/Globulin Ratio Urine Color Urine Turbidity Urine pH Ur Specific [place] Urine Protein Urine Glucose (UA) Urine Ketones Urine Blood Urine Nitrite Urine Bilirubin Urine Urobilinogen Ur Leukocyte Esterase Urine WBC (Auto) Urine RBC (Auto) U Epithel Cells (Auto) Urine Bacteria (Auto) Urine Mucus Syphilis IgG Antibody Blood Type Antibody Screen 02/17/20 02/17/20 02/17/20 16:19 20:40 21:25 WBC RBC Hgb Hct MCV MCH MCHC RDW Plt Count Sodium Potassium Chloride Carbon Dioxide Anion Gap BUN Creatinine Estimated GFR BUN/Creatinine Ratio Glucose POC Glucose 114 H 93 Uric Acid Calcium Magnesium 4.50 H Total Bilirubin AST ALT Alkaline Phosphatase Lactate Dehydrogenase Troponin T Total Protein Albumin Albumin/Globulin Ratio Urine Color Urine Turbidity Urine pH Ur Specific [place] Urine Protein Urine Glucose (UA) Urine Ketones Urine Blood Urine Nitrite Urine Bilirubin Urine Urobilinogen Ur Leukocyte Esterase Urine WBC (Auto) Urine RBC (Auto) U Epithel Cells (Auto) Urine Bacteria (Auto) Urine Mucus Syphilis IgG Antibody Blood Type Antibody Screen
--- NOTE | 2020-02-18 00:09 | Progress Note ---
Assessment and Plan - Patient Problems (1) 36 weeks gestation of Current Visit: Yes Status: Acute (2) Anemia Current Visit: Yes Status: Acute Qualifiers: Anemia type: iron deficiency Plan to address problem: monitor closely post for need for transfusion. currently stable. (3) BMI 45.0-49.9, adult Current Visit: Yes Status: Acute (4) Cardiomyopathy Current Visit: Yes Status: Acute Plan to address problem: -pt seen and evaluated by cardiology -will follow recommendations -bp no stable and normal on latetalol po 300mg bid after having had several doses of IV labetalol. Procardia was order also but held due to bp being stabalized (5) Diet controlled gestational diabetes mellitus (GDM) in third trimester Current Visit: Yes Status: Acute (6) GBS (group B Streptococcus carrier), +RV culture, currently Current Visit: Yes Status: Acute (7) Pre-eclampsia Current Visit: Yes Status: Acute Qualifiers: Trimester: third trimester Qualified Code(s): O14.93 - Unspecified pre- eclampsia, third trimester Plan to address problem: -con't with iol -minimal to no cervical change in 6 hours -d/w that having the magnesium and pitocin going at the same time can be a challenge and that this can slow the labor progress. She was also advised that her EFW 2 wks ago was 8lbs and while her largest baby was 9lbs this baby could be slightly larger and her labor may not progress. AROM yielded a large amount of fluid and may aid in progression of labor -will recommend c/s delivery if no progression after adequate contractions have be noted and documented for next 1-2 hours. -pt expressed understanding and at this time agrees with plan of care. RN at bedside as plan was d/w pt and expressed understanding. (8) Chest pain Current Visit: Yes Status: Resolved Plan to address problem: -currently resolved and pt has no c/o chest pain at this time. STudies showed no acute changes. Pt cleared by cardiology for vaginal delivery and will see pt again as needed. Subjective - Subjective Date of service: 02/10/20 (late entry) Principal diagnosis: IUP, IOL @ 36 wks, pre e, on mag, hx of cardiomyopathy Interval history: Pt examined. Cx is unchanged from previous exam. AROM was done, Clear fluid noted. IUPC and ISE were placed. I d/w that she has made minimal change since being in active labor. I d/w need for c/s due to failure to progress. Up to this point, pt has not had a consistent labor pattern and the contractions were not able to be measured as adequate. If she has adequte MVUs and no cx change, operative delivery would be recommended at that time. Pt and support person expressed understanding and questions were addressed and answered. Patient reports: movement normal, no new complaints Objective - Vital Signs Vital Signs: Vital Signs - 12hr 02/17/20 02/17/20 02/17/20 12:08 12:11 12:13 Temperature Pulse Rate 90 86 94 H Respiratory Rate Blood Pressure 157/75 O2 Sat by Pulse 97 98 Oximetry 02/17/20 02/17/20 02/17/20 12:18 12:23 12:27 Temperature Pulse Rate 88 89 88 Respiratory Rate Blood Pressure O2 Sat by Pulse 99 98 91 Oximetry 02/17/20 02/17/20 02/17/20 12:28 12:32 12:33 Temperature Pulse Rate 90 83 85 Respiratory Rate Blood Pressure 145/73 O2 Sat by Pulse 97 94 97 Oximetry 02/17/20 02/17/20 02/17/20 12:38 12:41 12:43 Temperature Pulse Rate 90 82 83 Respiratory Rate Blood Pressure 149/74 O2 Sat by Pulse 93 93 Oximetry 02/17/20 02/17/20 02/17/20 12:48 12:49 12:53 Temperature Pulse Rate 84 89 86 Respiratory Rate Blood Pressure O2 Sat by Pulse 97 92 92 Oximetry 02/17/20 02/17/20 02/17/20 12:54 12:56 12:58 Temperature Pulse Rate 90 85 82 Respiratory Rate Blood Pressure 156/76 O2 Sat by Pulse 93 97 Oximetry 02/17/20 02/17/20 02/17/20 12:59 13:03 13:04 Temperature Pulse Rate 90 79 85 Respiratory Rate Blood Pressure O2 Sat by Pulse 92 96 93 Oximetry 02/17/20 02/17/20 02/17/20 13:08 13:11 13:13 Temperature Pulse Rate 90 83 94 H Respiratory Rate Blood Pressure 156/77 O2 Sat by Pulse 96 94 96 Oximetry 02/17/20 02/17/20 02/17/20 13:18 13:20 13:23 Temperature Pulse Rate 87 87 96 H Respiratory Rate Blood Pressure O2 Sat by Pulse 97 93 97 Oximetry 02/17/20 02/17/20 02/17/20 13:28 13:33 13:38 Temperature Pulse Rate 93 H 85 96 H Respiratory Rate Blood Pressure O2 Sat by Pulse 99 96 98 Oximetry 02/17/20 02/17/20 02/17/20 13:42 13:43 13:47 Temperature Pulse Rate 88 83 87 Respiratory Rate Blood Pressure 157/85 O2 Sat by Pulse 93 98 93 Oximetry 02/17/20 02/17/20 02/17/20 13:48 13:53 13:56 Temperature Pulse Rate 88 90 86 Respiratory Rate Blood Pressure 151/77 O2 Sat by Pulse 98 98 Oximetry 02/17/20 02/17/20 02/17/20 13:58 14:03 14:08 Temperature Pulse Rate 87 88 89 Respiratory Rate Blood Pressure O2 Sat by Pulse 98 98 95 Oximetry 02/17/20 02/17/20 02/17/20 14:09 14:12 14:13 Temperature Pulse Rate 82 82 89 Respiratory Rate Blood Pressure 166/80 O2 Sat by Pulse 92 96 Oximetry 02/17/20 02/17/20 02/17/20 14:14 14:18 14:19 Temperature Pulse Rate 88 86 80 Respiratory Rate Blood Pressure O2 Sat by Pulse 94 94 94 Oximetry 02/17/20 02/17/20 02/17/20 14:23 14:25 14:26 Temperature Pulse Rate 88 86 87 Respiratory Rate Blood Pressure 165/78 O2 Sat by Pulse 91 94 Oximetry 02/17/20 02/17/20 02/17/20 14:28 14:31 14:33 Temperature Pulse Rate 83 82 84 Respiratory Rate Blood Pressure O2 Sat by Pulse 97 93 97 Oximetry 02/17/20 02/17/20 02/17/20 14:37 14:38 14:41 Temperature Pulse Rate 80 77 85 Respiratory Rate Blood Pressure 155/73 O2 Sat by Pulse 94 98 Oximetry 02/17/20 02/17/20 02/17/20 14:42 14:43 14:48 Temperature Pulse Rate 88 84 84 Respiratory Rate Blood Pressure O2 Sat by Pulse 92 94 93 Oximetry 02/17/20 02/17/20 02/17/20 14:53 14:54 14:56 Temperature Pulse Rate 81 86 83 Respiratory Rate Blood Pressure 153/73 O2 Sat by Pulse 96 93 Oximetry 02/17/20 02/17/20 02/17/20 14:58 14:59 15:03 Temperature Pulse Rate 81 82 84 Respiratory Rate Blood Pressure O2 Sat by Pulse 94 94 97 Oximetry 02/17/20 02/17/20 02/17/20 15:04 15:08 15:10 Temperature Pulse Rate 85 90 85 Respiratory Rate Blood Pressure O2 Sat by Pulse 94 98 92 Oximetry 02/17/20 02/17/20 02/17/20 15:11 15:14 15:15 Temperature Pulse Rate 85 86 84 Respiratory Rate Blood Pressure 148/72 O2 Sat by Pulse 94 93 Oximetry 02/17/20 02/17/20 02/17/20 15:19 15:24 15:25 Temperature Pulse Rate 90 80 89 Respiratory Rate Blood Pressure O2 Sat by Pulse 99 95 92 Oximetry 02/17/20 02/17/20 02/17/20 15:27 15:29 15:34 Temperature Pulse Rate 85 83 79 Respiratory Rate Blood Pressure 145/73 O2 Sat by Pulse 96 96 Oximetry 02/17/20 02/17/20 02/17/20 15:38 15:39 15:42 Temperature Pulse Rate 86 77 82 Respiratory Rate Blood Pressure 148/80 O2 Sat by Pulse 91 95 Oximetry 02/17/20 02/17/20 02/17/20 15:44 15:45 15:49 Temperature Pulse Rate 84 82 87 Respiratory Rate Blood Pressure O2 Sat by Pulse 94 94 97 Oximetry 02/17/20 02/17/20 02/17/20 15:50 15:54 15:56 Temperature Pulse Rate 79 79 78 Respiratory Rate Blood Pressure 144/73 O2 Sat by Pulse 94 94 94 Oximetry 02/17/20 02/17/20 02/17/20 15:59 16:04 16:05 Temperature Pulse Rate 82 79 90 Respiratory Rate Blood Pressure O2 Sat by Pulse 94 96 93 Oximetry 02/17/20 02/17/20 02/17/20 16:09 16:10 16:11 Temperature Pulse Rate 80 85 82 Respiratory Rate Blood Pressure 147/71 O2 Sat by Pulse 94 93 Oximetry 02/17/20 02/17/20 02/17/20 16:14 16:16 16:19 Temperature Pulse Rate 81 86 81 Respiratory Rate Blood Pressure O2 Sat by Pulse 97 94 96 Oximetry 02/17/20 02/17/20 02/17/20 16:22 16:24 16:26 Temperature Pulse Rate 84 83 84 Respiratory Rate Blood Pressure 149/74 O2 Sat by Pulse 93 95 Oximetry 02/17/20 02/17/20 02/17/20 16:27 16:29 16:34 Temperature Pulse Rate 79 82 81 Respiratory Rate Blood Pressure O2 Sat by Pulse 94 93 97 Oximetry 02/17/20 02/17/20 02/17/20 16:37 16:39 16:41 Temperature Pulse Rate 86 84 83 Respiratory Rate Blood Pressure 156/73 O2 Sat by Pulse 93 98 Oximetry 02/17/20 02/17/20 02/17/20 16:42 16:44 16:49 Temperature Pulse Rate 88 87 85 Respiratory Rate Blood Pressure O2 Sat by Pulse 93 97 97 Oximetry 02/17/20 02/17/20 02/17/20 16:51 16:54 16:57 Temperature Pulse Rate 83 83 79 Respiratory Rate Blood Pressure O2 Sat by Pulse 88 88 91 Oximetry 02/17/20 02/17/20 02/17/20 16:58 16:59 17:03 Temperature Pulse Rate 69 78 91 H Respiratory Rate Blood Pressure 148/73 O2 Sat by Pulse 91 92 Oximetry 02/17/20 02/17/20 02/17/20 17:04 17:09 17:11 Temperature Pulse Rate 82 83 82 Respiratory Rate Blood Pressure O2 Sat by Pulse 94 97 94 Oximetry 02/17/20 02/17/20 02/17/20 17:12 17:14 17:16 Temperature Pulse Rate 78 84 85 Respiratory Rate Blood Pressure 183/86 O2 Sat by Pulse 93 92 Oximetry 02/17/20 02/17/20 02/17/20 17:19 17:22 17:24 Temperature Pulse Rate 81 82 75 Respiratory Rate Blood Pressure O2 Sat by Pulse 98 93 98 Oximetry 02/17/20 02/17/20 02/17/20 17:27 17:28 17:29 Temperature Pulse Rate 78 77 89 Respiratory Rate Blood Pressure 180/87 O2 Sat by Pulse 92 92 Oximetry 02/17/20 02/17/20 02/17/20 17:32 17:34 17:39 Temperature Pulse Rate 78 84 81 Respiratory Rate Blood Pressure 178/90 O2 Sat by Pulse 93 97 95 Oximetry 02/17/20 02/17/20 02/17/20 17:42 17:44 17:45 Temperature Pulse Rate 83 86 85 Respiratory Rate Blood Pressure 203/92 O2 Sat by Pulse 94 94 Oximetry 02/17/20 02/17/20 02/17/20 17:49 17:52 17:54 Temperature Pulse Rate 84 86 89 Respiratory Rate Blood Pressure O2 Sat by Pulse 96 93 92 Oximetry 02/17/20 02/17/20 02/17/20 17:58 17:59 18:04 Temperature Pulse Rate 85 92 H 91 H Respiratory Rate Blood Pressure 197/90 O2 Sat by Pulse 97 97 Oximetry 02/17/20 02/17/20 02/17/20 18:09 18:10 18:12 Temperature Pulse Rate 79 80 81 Respiratory Rate Blood Pressure 190/87 O2 Sat by Pulse 99 92 Oximetry 02/17/20 02/17/20 02/17/20 18:14 18:16 18:19 Temperature Pulse Rate 77 84 79 Respiratory Rate Blood Pressure O2 Sat by Pulse 96 93 94 Oximetry 02/17/20 02/17/20 02/17/20 18:22 18:24 18:29 Temperature Pulse Rate 77 97 H 87 Respiratory Rate Blood Pressure O2 Sat by Pulse 94 96 98 Oximetry 02/17/20 02/17/20 02/17/20 18:34 18:36 18:39 Temperature Pulse Rate 82 80 83 Respiratory Rate Blood Pressure 152/65 O2 Sat by Pulse 98 98 Oximetry 02/17/20 02/17/20 02/17/20 18:41 18:42 18:44 Temperature Pulse Rate 82 83 81 Respiratory Rate Blood Pressure 147/64 147/66 146/68 O2 Sat by Pulse 97 Oximetry 02/17/20 02/17/20 02/17/20 18:47 18:48 18:49 Temperature Pulse Rate 82 85 83 Respiratory Rate Blood Pressure 147/70 152/71 O2 Sat by Pulse 98 Oximetry 02/17/20 02/17/20 02/17/20 18:53 18:54 18:56 Temperature Pulse Rate 80 79 77 Respiratory Rate Blood Pressure 151/70 O2 Sat by Pulse 93 99 Oximetry 02/17/20 02/17/20 02/17/20 18:59 19:01 19:04 Temperature Pulse Rate 80 71 82 Respiratory Rate Blood Pressure 149/70 O2 Sat by Pulse 97 95 Oximetry 02/17/20 02/17/20 02/17/20 19:05 19:09 19:10 Temperature Pulse Rate 78 86 77 Respiratory Rate Blood Pressure 151/71 O2 Sat by Pulse 93 94 93 Oximetry 02/17/20 02/17/20 02/17/20 19:11 19:14 19:15 Temperature Pulse Rate 80 81 76 Respiratory Rate Blood Pressure 150/70 152/73 O2 Sat by Pulse 94 Oximetry 02/17/20 02/17/20 02/17/20 19:19 19:24 19:26 Temperature Pulse Rate 80 88 76 Respiratory Rate Blood Pressure O2 Sat by Pulse 98 99 94 Oximetry 02/17/20 02/17/20 02/17/20 19:29 19:30 19:32 Temperature 98.5 F Pulse Rate 75 75 Respiratory 18 Rate Blood Pressure 139/72 O2 Sat by Pulse 98 Oximetry 02/17/20 02/17/20 02/17/20 19:33 19:34 19:38 Temperature Pulse Rate 77 83 75 Respiratory Rate Blood Pressure O2 Sat by Pulse 94 92 93 Oximetry 02/17/20 02/17/20 02/17/20 19:39 19:44 19:48 Temperature Pulse Rate 79 75 78 Respiratory Rate Blood Pressure 151/67 O2 Sat by Pulse 93 94 Oximetry 02/17/20 02/17/20 02/17/20 19:49 19:54 19:55 Temperature Pulse Rate 80 78 80 Respiratory Rate Blood Pressure O2 Sat by Pulse 93 93 94 Oximetry 02/17/20 02/17/20 02/17/20 19:59 20:01 20:02 Temperature Pulse Rate 78 81 85 Respiratory Rate Blood Pressure 136/65 O2 Sat by Pulse 94 93 Oximetry 02/17/20 02/17/20 02/17/20 20:04 20:08 20:09 Temperature Pulse Rate 80 80 82 Respiratory Rate Blood Pressure O2 Sat by Pulse 94 93 94 Oximetry 02/17/20 02/17/20 02/17/20 20:14 20:17 20:19 Temperature Pulse Rate 78 76 76 Respiratory Rate Blood Pressure 141/69 O2 Sat by Pulse 96 93 Oximetry 02/17/20 02/17/20 02/17/20 20:20 20:24 20:25 Temperature Pulse Rate 79 75 78 Respiratory Rate Blood Pressure O2 Sat by Pulse 94 97 94 Oximetry 02/17/20 02/17/20 02/17/20 20:29 20:30 20:32 Temperature Pulse Rate 79 79 83 Respiratory Rate Blood Pressure 141/69 O2 Sat by Pulse 94 94 Oximetry 02/17/20 02/17/20 02/17/20 20:34 20:37 20:39 Temperature Pulse Rate 83 83 93 H Respiratory Rate Blood Pressure O2 Sat by Pulse 96 94 94 Oximetry 02/17/20 02/17/20 02/17/20 20:44 20:47 20:48 Temperature Pulse Rate 82 81 77 Respiratory Rate Blood Pressure 154/71 O2 Sat by Pulse 99 93 Oximetry 02/17/20 02/17/20 02/17/20 20:49 20:53 20:54 Temperature Pulse Rate 79 83 80 Respiratory Rate Blood Pressure O2 Sat by Pulse 93 92 94 Oximetry 02/17/20 02/17/20 02/17/20 20:58 20:59 21:01 Temperature Pulse Rate 81 81 80 Respiratory Rate Blood Pressure 158/71 O2 Sat by Pulse 93 94 Oximetry 02/17/20 02/17/20 02/17/20 21:04 21:09 21:11 Temperature Pulse Rate 86 83 82 Respiratory Rate Blood Pressure 158/71 O2 Sat by Pulse 94 96 Oximetry 02/17/20 02/17/20 02/17/20 21:13 21:14 21:18 Temperature Pulse Rate 81 92 H 83 Respiratory Rate Blood Pressure 163/79 O2 Sat by Pulse 92 97 Oximetry 02/17/20 02/17/20 02/17/20 21:19 21:22 21:23 Temperature Pulse Rate 82 80 82 Respiratory Rate Blood Pressure 163/77 166/77 O2 Sat by Pulse 96 Oximetry 02/17/20 02/17/20 02/17/20 21:24 21:26 21:29 Temperature Pulse Rate 80 81 78 Respiratory Rate Blood Pressure O2 Sat by Pulse 97 93 96 Oximetry 02/17/20 02/17/20 02/17/20 21:32 21:33 21:34 Temperature Pulse Rate 80 78 79 Respiratory Rate Blood Pressure 155/72 O2 Sat by Pulse 93 93 Oximetry 02/17/20 02/17/20 02/17/20 21:38 21:39 21:44 Temperature Pulse Rate 83 79 84 Respiratory Rate Blood Pressure O2 Sat by Pulse 94 94 93 Oximetry 02/17/20 02/17/20 02/17/20 21:46 21:49 21:50 Temperature Pulse Rate 78 80 81 Respiratory Rate Blood Pressure 149/67 O2 Sat by Pulse 95 93 Oximetry 02/17/20 02/17/20 02/17/20 21:54 21:59 22:01 Temperature Pulse Rate 80 83 80 Respiratory Rate Blood Pressure 146/65 O2 Sat by Pulse 93 93 Oximetry 02/17/20 02/17/20 02/17/20 22:04 22:05 22:09 Temperature Pulse Rate 82 80 79 Respiratory Rate Blood Pressure O2 Sat by Pulse 93 94 93 Oximetry 02/17/20 02/17/20 02/17/20 22:14 22:16 22:17 Temperature Pulse Rate 80 80 82 Respiratory Rate Blood Pressure 142/74 O2 Sat by Pulse 92 94 Oximetry 02/17/20 02/17/20 02/17/20 22:19 22:21 22:24 Temperature Pulse Rate 81 82 78 Respiratory Rate Blood Pressure O2 Sat by Pulse 94 94 94 Oximetry 02/17/20 02/17/20 02/17/20 22:27 22:29 22:32 Temperature Pulse Rate 81 80 85 Respiratory Rate Blood Pressure 141/68 O2 Sat by Pulse 94 94 Oximetry 02/17/20 02/17/20 02/17/20 22:34 22:39 22:44 Temperature Pulse Rate 83 84 79 Respiratory Rate Blood Pressure O2 Sat by Pulse 98 99 98 Oximetry 02/17/20 02/17/20 02/17/20 22:46 22:49 22:54 Temperature Pulse Rate 80 78 84 Respiratory Rate Blood Pressure 134/63 O2 Sat by Pulse 97 96 Oximetry 02/17/20 02/17/20 02/17/20 22:59 23:00 23:03 Temperature Pulse Rate 81 76 74 Respiratory Rate Blood Pressure 144/72 O2 Sat by Pulse 95 94 Oximetry 02/17/20 02/17/20 02/17/20 23:04 23:05 23:09 Temperature Pulse Rate 77 73 77 Respiratory Rate Blood Pressure O2 Sat by Pulse 97 94 96 Oximetry 02/17/20 02/17/20 02/17/20 23:14 23:17 23:19 Temperature Pulse Rate 82 75 83 Respiratory Rate Blood Pressure 143/72 O2 Sat by Pulse 96 94 95 Oximetry 02/17/20 02/17/20 02/17/20 23:24 23:29 23:31 Temperature Pulse Rate 76 77 78 Respiratory Rate Blood Pressure 140/70 O2 Sat by Pulse 98 97 94 Oximetry 02/17/20 02/17/20 02/17/20 23:34 23:39 23:44 Temperature Pulse Rate 78 79 89 Respiratory Rate Blood Pressure O2 Sat by Pulse 96 95 98 Oximetry 02/17/20 02/17/20 02/17/20 23:49 23:54 23:59 Temperature Pulse Rate 84 77 87 Respiratory Rate Blood Pressure O2 Sat by Pulse 98 99 97 Oximetry 02/18/20 00:02 Temperature Pulse Rate 86 Respiratory Rate Blood Pressure 136/72 O2 Sat by Pulse Oximetry - Exam FHR: category 1 Cervical Dilatation: 5.5 (5 to 6cm) Cervical Effacement Percentage: 80 (controlled AROM w/o difficulty. IUPC and ISE placed. Clear fluid noted. large amount of fluid released. descent of head to -1 station ) station: -1 Uterine Contraction Pattern: Irregular (due to not tracing well with maternal position but when present not consistent pattern) Extremities: edema (2+ bilaterall present up admission) Deep Tendon Reflex Grade: Normal +2 - Labs Labs: Abnormal Labs 02/17/20 02/17/20 02/17/20 03:25 03:25 03:25 RBC 3.64 L Hgb 7.8 L Hct 23.9 L MCV 66 L MCH 22 L RDW 19.1 H Potassium 3.5 L Creatinine 0.4 L 0.4 L Glucose 111 H POC Glucose Magnesium Lactate Dehydrogenase 266 H Total Protein 6.0 L Albumin 3.2 L 02/17/20 02/17/20 02/17/20 09:40 15:30 16:19 RBC Hgb Hct MCV MCH RDW Potassium Creatinine Glucose POC Glucose 114 H Magnesium 3.70 H 4.20 H Lactate Dehydrogenase Total Protein Albumin 02/17/20 20:40 RBC Hgb Hct MCV MCH RDW Potassium Creatinine Glucose POC Glucose Magnesium 4.50 H Lactate Dehydrogenase Total Protein Albumin Laboratory Results - last 24 hr 02/17/20 02/17/20 02/17/20 01:22 03:25 03:25 WBC 6.3 RBC 3.64 L Hgb 7.8 L Hct 23.9 L MCV 66 L MCH 22 L MCHC 33 RDW 19.1 H Plt Count 226 Sodium Potassium Chloride Carbon Dioxide Anion Gap BUN Creatinine Estimated GFR BUN/Creatinine Ratio Glucose POC Glucose Uric Acid Calcium Magnesium Total Bilirubin AST ALT Alkaline Phosphatase Lactate Dehydrogenase Troponin T Total Protein Albumin Albumin/Globulin Ratio Urine Color Yellow Urine Turbidity Clear Urine pH 6.0 Ur Specific [place] 1.021 Urine Protein 100 mg/dl Urine Glucose (UA) Neg Urine Ketones Neg Urine Blood Neg Urine Nitrite Neg Urine Bilirubin Neg Urine Urobilinogen 4.0 Ur Leukocyte Esterase Lg Urine WBC (Auto) 5.0 Urine RBC (Auto) 4.0 U Epithel Cells (Auto) 4.0 Urine Bacteria (Auto) 1+ Urine Mucus 1+ Syphilis IgG Antibody Blood Type A POSITIVE Antibody Screen Negative 02/17/20 02/17/20 02/17/20 03:25 03:25 03:25 WBC RBC Hgb Hct MCV MCH MCHC RDW Plt Count Sodium 138 Potassium 3.5 L Chloride 102.8 Carbon Dioxide 22 Anion Gap 17 BUN 7 Creatinine 0.4 L 0.4 L Estimated GFR > 60 > 60 BUN/Creatinine Ratio 18 Glucose 111 H POC Glucose Uric Acid 5.6 Calcium 8.9 Magnesium Total Bilirubin 0.30 AST 28 27 ALT 21 22 Alkaline Phosphatase 97 Lactate Dehydrogenase 266 H Troponin T Total Protein 6.0 L Albumin 3.2 L Albumin/Globulin Ratio 1.1 Urine Color Urine Turbidity Urine pH Ur Specific [place] Urine Protein Urine Glucose (UA) Urine Ketones Urine Blood Urine Nitrite Urine Bilirubin Urine Urobilinogen Ur Leukocyte Esterase Urine WBC (Auto) Urine RBC (Auto) U Epithel Cells (Auto) Urine Bacteria (Auto) Urine Mucus Syphilis IgG Antibody Nonreactive Blood Type Antibody Screen 02/17/20 02/17/20 02/17/20 09:40 09:40 15:30 WBC RBC Hgb Hct MCV MCH MCHC RDW Plt Count Sodium Potassium Chloride Carbon Dioxide Anion Gap BUN Creatinine Estimated GFR BUN/Creatinine Ratio Glucose POC Glucose Uric Acid Calcium Magnesium 3.70 H 4.20 H Total Bilirubin AST ALT Alkaline Phosphatase Lactate Dehydrogenase Troponin T < 0.010 Total Protein Albumin Albumin/Globulin Ratio Urine Color Urine Turbidity Urine pH Ur Specific [place] Urine Protein Urine Glucose (UA) Urine Ketones Urine Blood Urine Nitrite Urine Bilirubin Urine Urobilinogen Ur Leukocyte Esterase Urine WBC (Auto) Urine RBC (Auto) U Epithel Cells (Auto) Urine Bacteria (Auto) Urine Mucus Syphilis IgG Antibody Blood Type Antibody Screen 02/17/20 02/17/20 02/17/20 16:19 20:40 21:25 WBC RBC Hgb Hct MCV MCH MCHC RDW Plt Count Sodium Potassium Chloride Carbon Dioxide Anion Gap BUN Creatinine Estimated GFR BUN/Creatinine Ratio Glucose POC Glucose 114 H 93 Uric Acid Calcium Magnesium 4.50 H Total Bilirubin AST ALT Alkaline Phosphatase Lactate Dehydrogenase Troponin T Total Protein Albumin Albumin/Globulin Ratio Urine Color Urine Turbidity Urine pH Ur Specific [place] Urine Protein Urine Glucose (UA) Urine Ketones Urine Blood Urine Nitrite Urine Bilirubin Urine Urobilinogen Ur Leukocyte Esterase Urine WBC (Auto) Urine RBC (Auto) U Epithel Cells (Auto) Urine Bacteria (Auto) Urine Mucus Syphilis IgG Antibody Blood Type Antibody Screen
--- NOTE | 2020-02-18 01:56 | Progress Note ---
Assessment and Plan A: 34 y.o. IOL for pre e and GDM, on magnesium infusion. Feeling pressure and pain. Cervical exam 7.5/70/-1. P: Continue with Pitocin per protocol. Subjective - Subjective Date of service: 02/18/20 (Pt with c/o feeling pressure and pain) Principal diagnosis: IUP, IOL @ 36 wks, pre e, on mag, hx of cardiomyopathy Patient reports: movement normal, no new complaints Objective - Vital Signs Vital Signs: Vital Signs - 12hr 02/17/20 02/17/20 02/17/20 13:53 13:56 13:58 Temperature Pulse Rate 90 86 87 Respiratory Rate Blood Pressure 151/77 O2 Sat by Pulse 98 98 Oximetry 02/17/20 02/17/20 02/17/20 14:03 14:08 14:09 Temperature Pulse Rate 88 89 82 Respiratory Rate Blood Pressure O2 Sat by Pulse 98 95 92 Oximetry 02/17/20 02/17/20 02/17/20 14:12 14:13 14:14 Temperature Pulse Rate 82 89 88 Respiratory Rate Blood Pressure 166/80 O2 Sat by Pulse 96 94 Oximetry 02/17/20 02/17/20 02/17/20 14:18 14:19 14:23 Temperature Pulse Rate 86 80 88 Respiratory Rate Blood Pressure O2 Sat by Pulse 94 94 91 Oximetry 02/17/20 02/17/20 02/17/20 14:25 14:26 14:28 Temperature Pulse Rate 86 87 83 Respiratory Rate Blood Pressure 165/78 O2 Sat by Pulse 94 97 Oximetry 02/17/20 02/17/20 02/17/20 14:31 14:33 14:37 Temperature Pulse Rate 82 84 80 Respiratory Rate Blood Pressure O2 Sat by Pulse 93 97 94 Oximetry 02/17/20 02/17/20 02/17/20 14:38 14:41 14:42 Temperature Pulse Rate 77 85 88 Respiratory Rate Blood Pressure 155/73 O2 Sat by Pulse 98 92 Oximetry 02/17/20 02/17/20 02/17/20 14:43 14:48 14:53 Temperature Pulse Rate 84 84 81 Respiratory Rate Blood Pressure O2 Sat by Pulse 94 93 96 Oximetry 02/17/20 02/17/20 02/17/20 14:54 14:56 14:58 Temperature Pulse Rate 86 83 81 Respiratory Rate Blood Pressure 153/73 O2 Sat by Pulse 93 94 Oximetry 02/17/20 02/17/20 02/17/20 14:59 15:03 15:04 Temperature Pulse Rate 82 84 85 Respiratory Rate Blood Pressure O2 Sat by Pulse 94 97 94 Oximetry 02/17/20 02/17/20 02/17/20 15:08 15:10 15:11 Temperature Pulse Rate 90 85 85 Respiratory Rate Blood Pressure 148/72 O2 Sat by Pulse 98 92 Oximetry 02/17/20 02/17/20 02/17/20 15:14 15:15 15:19 Temperature Pulse Rate 86 84 90 Respiratory Rate Blood Pressure O2 Sat by Pulse 94 93 99 Oximetry 02/17/20 02/17/20 02/17/20 15:24 15:25 15:27 Temperature Pulse Rate 80 89 85 Respiratory Rate Blood Pressure 145/73 O2 Sat by Pulse 95 92 Oximetry 02/17/20 02/17/20 02/17/20 15:29 15:34 15:38 Temperature Pulse Rate 83 79 86 Respiratory Rate Blood Pressure O2 Sat by Pulse 96 96 91 Oximetry 02/17/20 02/17/20 02/17/20 15:39 15:42 15:44 Temperature Pulse Rate 77 82 84 Respiratory Rate Blood Pressure 148/80 O2 Sat by Pulse 95 94 Oximetry 02/17/20 02/17/20 02/17/20 15:45 15:49 15:50 Temperature Pulse Rate 82 87 79 Respiratory Rate Blood Pressure O2 Sat by Pulse 94 97 94 Oximetry 02/17/20 02/17/20 02/17/20 15:54 15:56 15:59 Temperature Pulse Rate 79 78 82 Respiratory Rate Blood Pressure 144/73 O2 Sat by Pulse 94 94 94 Oximetry 02/17/20 02/17/20 02/17/20 16:04 16:05 16:09 Temperature Pulse Rate 79 90 80 Respiratory Rate Blood Pressure O2 Sat by Pulse 96 93 94 Oximetry 02/17/20 02/17/20 02/17/20 16:10 16:11 16:14 Temperature Pulse Rate 85 82 81 Respiratory Rate Blood Pressure 147/71 O2 Sat by Pulse 93 97 Oximetry 02/17/20 02/17/20 02/17/20 16:16 16:19 16:22 Temperature Pulse Rate 86 81 84 Respiratory Rate Blood Pressure O2 Sat by Pulse 94 96 93 Oximetry 02/17/20 02/17/20 02/17/20 16:24 16:26 16:27 Temperature Pulse Rate 83 84 79 Respiratory Rate Blood Pressure 149/74 O2 Sat by Pulse 95 94 Oximetry 02/17/20 02/17/20 02/17/20 16:29 16:34 16:37 Temperature Pulse Rate 82 81 86 Respiratory Rate Blood Pressure O2 Sat by Pulse 93 97 93 Oximetry 02/17/20 02/17/20 02/17/20 16:39 16:41 16:42 Temperature Pulse Rate 84 83 88 Respiratory Rate Blood Pressure 156/73 O2 Sat by Pulse 98 93 Oximetry 02/17/20 02/17/20 02/17/20 16:44 16:49 16:51 Temperature Pulse Rate 87 85 83 Respiratory Rate Blood Pressure O2 Sat by Pulse 97 97 88 Oximetry 02/17/20 02/17/20 02/17/20 16:54 16:57 16:58 Temperature Pulse Rate 83 79 69 Respiratory Rate Blood Pressure 148/73 O2 Sat by Pulse 88 91 Oximetry 02/17/20 02/17/20 02/17/20 16:59 17:03 17:04 Temperature Pulse Rate 78 91 H 82 Respiratory Rate Blood Pressure O2 Sat by Pulse 91 92 94 Oximetry 02/17/20 02/17/20 02/17/20 17:09 17:11 17:12 Temperature Pulse Rate 83 82 78 Respiratory Rate Blood Pressure 183/86 O2 Sat by Pulse 97 94 Oximetry 02/17/20 02/17/20 02/17/20 17:14 17:16 17:19 Temperature Pulse Rate 84 85 81 Respiratory Rate Blood Pressure O2 Sat by Pulse 93 92 98 Oximetry 02/17/20 02/17/20 02/17/20 17:22 17:24 17:27 Temperature Pulse Rate 82 75 78 Respiratory Rate Blood Pressure O2 Sat by Pulse 93 98 92 Oximetry 02/17/20 02/17/20 02/17/20 17:28 17:29 17:32 Temperature Pulse Rate 77 89 78 Respiratory Rate Blood Pressure 180/87 O2 Sat by Pulse 92 93 Oximetry 02/17/20 02/17/20 02/17/20 17:34 17:39 17:42 Temperature Pulse Rate 84 81 83 Respiratory Rate Blood Pressure 178/90 203/92 O2 Sat by Pulse 97 95 Oximetry 02/17/20 02/17/20 02/17/20 17:44 17:45 17:49 Temperature Pulse Rate 86 85 84 Respiratory Rate Blood Pressure O2 Sat by Pulse 94 94 96 Oximetry 02/17/20 02/17/20 02/17/20 17:52 17:54 17:58 Temperature Pulse Rate 86 89 85 Respiratory Rate Blood Pressure 197/90 O2 Sat by Pulse 93 92 Oximetry 02/17/20 02/17/20 02/17/20 17:59 18:04 18:09 Temperature Pulse Rate 92 H 91 H 79 Respiratory Rate Blood Pressure O2 Sat by Pulse 97 97 99 Oximetry 02/17/20 02/17/20 02/17/20 18:10 18:12 18:14 Temperature Pulse Rate 80 81 77 Respiratory Rate Blood Pressure 190/87 O2 Sat by Pulse 92 96 Oximetry 02/17/20 02/17/20 02/17/20 18:16 18:19 18:22 Temperature Pulse Rate 84 79 77 Respiratory Rate Blood Pressure O2 Sat by Pulse 93 94 94 Oximetry 02/17/20 02/17/20 02/17/20 18:24 18:29 18:34 Temperature Pulse Rate 97 H 87 82 Respiratory Rate Blood Pressure O2 Sat by Pulse 96 98 98 Oximetry 02/17/20 02/17/20 02/17/20 18:36 18:39 18:41 Temperature Pulse Rate 80 83 82 Respiratory Rate Blood Pressure 152/65 147/64 O2 Sat by Pulse 98 Oximetry 02/17/20 02/17/20 02/17/20 18:42 18:44 18:47 Temperature Pulse Rate 83 81 82 Respiratory Rate Blood Pressure 147/66 146/68 147/70 O2 Sat by Pulse 97 Oximetry 02/17/20 02/17/20 02/17/20 18:48 18:49 18:53 Temperature Pulse Rate 85 83 80 Respiratory Rate Blood Pressure 152/71 O2 Sat by Pulse 98 93 Oximetry 02/17/20 02/17/20 02/17/20 18:54 18:56 18:59 Temperature Pulse Rate 79 77 80 Respiratory Rate Blood Pressure 151/70 O2 Sat by Pulse 99 97 Oximetry 02/17/20 02/17/20 02/17/20 19:01 19:04 19:05 Temperature Pulse Rate 71 82 78 Respiratory Rate Blood Pressure 149/70 151/71 O2 Sat by Pulse 95 93 Oximetry 02/17/20 02/17/20 02/17/20 19:09 19:10 19:11 Temperature Pulse Rate 86 77 80 Respiratory Rate Blood Pressure 150/70 O2 Sat by Pulse 94 93 Oximetry 02/17/20 02/17/20 02/17/20 19:14 19:15 19:19 Temperature Pulse Rate 81 76 80 Respiratory Rate Blood Pressure 152/73 O2 Sat by Pulse 94 98 Oximetry 02/17/20 02/17/20 02/17/20 19:24 19:26 19:29 Temperature Pulse Rate 88 76 75 Respiratory Rate Blood Pressure O2 Sat by Pulse 99 94 98 Oximetry 02/17/20 02/17/20 02/17/20 19:30 19:32 19:33 Temperature 98.5 F Pulse Rate 75 77 Respiratory 18 Rate Blood Pressure 139/72 O2 Sat by Pulse 94 Oximetry 02/17/20 02/17/20 02/17/20 19:34 19:38 19:39 Temperature Pulse Rate 83 75 79 Respiratory Rate Blood Pressure O2 Sat by Pulse 92 93 93 Oximetry 02/17/20 02/17/20 02/17/20 19:44 19:48 19:49 Temperature Pulse Rate 75 78 80 Respiratory Rate Blood Pressure 151/67 O2 Sat by Pulse 94 93 Oximetry 02/17/20 02/17/20 02/17/20 19:54 19:55 19:59 Temperature Pulse Rate 78 80 78 Respiratory Rate Blood Pressure O2 Sat by Pulse 93 94 94 Oximetry 02/17/20 02/17/20 02/17/20 20:01 20:02 20:04 Temperature Pulse Rate 81 85 80 Respiratory Rate Blood Pressure 136/65 O2 Sat by Pulse 93 94 Oximetry 02/17/20 02/17/20 02/17/20 20:08 20:09 20:14 Temperature Pulse Rate 80 82 78 Respiratory Rate Blood Pressure O2 Sat by Pulse 93 94 96 Oximetry 02/17/20 02/17/20 02/17/20 20:17 20:19 20:20 Temperature Pulse Rate 76 76 79 Respiratory Rate Blood Pressure 141/69 O2 Sat by Pulse 93 94 Oximetry 02/17/20 02/17/20 02/17/20 20:24 20:25 20:29 Temperature Pulse Rate 75 78 79 Respiratory Rate Blood Pressure O2 Sat by Pulse 97 94 94 Oximetry 02/17/20 02/17/20 02/17/20 20:30 20:32 20:34 Temperature Pulse Rate 79 83 83 Respiratory Rate Blood Pressure 141/69 O2 Sat by Pulse 94 96 Oximetry 02/17/20 02/17/20 02/17/20 20:37 20:39 20:44 Temperature Pulse Rate 83 93 H 82 Respiratory Rate Blood Pressure O2 Sat by Pulse 94 94 99 Oximetry 02/17/20 02/17/20 02/17/20 20:47 20:48 20:49 Temperature Pulse Rate 81 77 79 Respiratory Rate Blood Pressure 154/71 O2 Sat by Pulse 93 93 Oximetry 02/17/20 02/17/20 02/17/20 20:53 20:54 20:58 Temperature Pulse Rate 83 80 81 Respiratory Rate Blood Pressure O2 Sat by Pulse 92 94 93 Oximetry 02/17/20 02/17/20 02/17/20 20:59 21:01 21:04 Temperature Pulse Rate 81 80 86 Respiratory Rate Blood Pressure 158/71 O2 Sat by Pulse 94 94 Oximetry 02/17/20 02/17/20 02/17/20 21:09 21:11 21:13 Temperature Pulse Rate 83 82 81 Respiratory Rate Blood Pressure 158/71 O2 Sat by Pulse 96 92 Oximetry 02/17/20 02/17/20 02/17/20 21:14 21:18 21:19 Temperature Pulse Rate 92 H 83 82 Respiratory Rate Blood Pressure 163/79 O2 Sat by Pulse 97 96 Oximetry 02/17/20 02/17/20 02/17/20 21:22 21:23 21:24 Temperature Pulse Rate 80 82 80 Respiratory Rate Blood Pressure 163/77 166/77 O2 Sat by Pulse 97 Oximetry 02/17/20 02/17/20 02/17/20 21:26 21:29 21:32 Temperature Pulse Rate 81 78 80 Respiratory Rate Blood Pressure O2 Sat by Pulse 93 96 93 Oximetry 02/17/20 02/17/20 02/17/20 21:33 21:34 21:38 Temperature Pulse Rate 78 79 83 Respiratory Rate Blood Pressure 155/72 O2 Sat by Pulse 93 94 Oximetry 02/17/20 02/17/20 02/17/20 21:39 21:44 21:46 Temperature Pulse Rate 79 84 78 Respiratory Rate Blood Pressure 149/67 O2 Sat by Pulse 94 93 Oximetry 02/17/20 02/17/20 02/17/20 21:49 21:50 21:54 Temperature Pulse Rate 80 81 80 Respiratory Rate Blood Pressure O2 Sat by Pulse 95 93 93 Oximetry 02/17/20 02/17/20 02/17/20 21:59 22:01 22:04 Temperature Pulse Rate 83 80 82 Respiratory Rate Blood Pressure 146/65 O2 Sat by Pulse 93 93 Oximetry 02/17/20 02/17/20 02/17/20 22:05 22:09 22:14 Temperature Pulse Rate 80 79 80 Respiratory Rate Blood Pressure O2 Sat by Pulse 94 93 92 Oximetry 02/17/20 02/17/20 02/17/20 22:16 22:17 22:19 Temperature Pulse Rate 80 82 81 Respiratory Rate Blood Pressure 142/74 O2 Sat by Pulse 94 94 Oximetry 02/17/20 02/17/20 02/17/20 22:21 22:24 22:27 Temperature Pulse Rate 82 78 81 Respiratory Rate Blood Pressure O2 Sat by Pulse 94 94 94 Oximetry 02/17/20 02/17/20 02/17/20 22:29 22:32 22:34 Temperature Pulse Rate 80 85 83 Respiratory Rate Blood Pressure 141/68 O2 Sat by Pulse 94 98 Oximetry 02/17/20 02/17/20 02/17/20 22:39 22:44 22:46 Temperature Pulse Rate 84 79 80 Respiratory Rate Blood Pressure 134/63 O2 Sat by Pulse 99 98 Oximetry 02/17/20 02/17/20 02/17/20 22:49 22:54 22:59 Temperature Pulse Rate 78 84 81 Respiratory Rate Blood Pressure O2 Sat by Pulse 97 96 95 Oximetry 02/17/20 02/17/20 02/17/20 23:00 23:03 23:04 Temperature Pulse Rate 76 74 77 Respiratory Rate Blood Pressure 144/72 O2 Sat by Pulse 94 97 Oximetry 02/17/20 02/17/20 02/17/20 23:05 23:09 23:14 Temperature Pulse Rate 73 77 82 Respiratory Rate Blood Pressure O2 Sat by Pulse 94 96 96 Oximetry 02/17/20 02/17/20 02/17/20 23:17 23:19 23:24 Temperature Pulse Rate 75 83 76 Respiratory Rate Blood Pressure 143/72 O2 Sat by Pulse 94 95 98 Oximetry 02/17/20 02/17/20 02/17/20 23:29 23:31 23:34 Temperature Pulse Rate 77 78 78 Respiratory Rate Blood Pressure 140/70 O2 Sat by Pulse 97 94 96 Oximetry 02/17/20 02/17/2020 23:39 23:44 23:49 Temperature Pulse Rate 79 89 84 Respiratory Rate Blood Pressure O2 Sat by Pulse 95 98 98 Oximetry 02/17/20 02/17/20 02/18/20 23:54 23:59 00:02 Temperature Pulse Rate 77 87 86 Respiratory Rate Blood Pressure 136/72 O2 Sat by Pulse 99 97 Oximetry 02/18/20 02/18/20 02/18/20 00:04 00:09 00:14 Temperature Pulse Rate 86 82 76 Respiratory Rate Blood Pressure O2 Sat by Pulse 99 97 97 Oximetry 02/18/20 02/18/20 02/18/20 00:15 00:17 00:19 Temperature Pulse Rate 91 H 82 81 Respiratory Rate Blood Pressure 172/92 O2 Sat by Pulse 93 97 Oximetry 02/18/20 02/18/20 02/18/20 00:21 00:24 00:27 Temperature Pulse Rate 80 77 80 Respiratory Rate Blood Pressure O2 Sat by Pulse 93 97 93 Oximetry 02/18/20 02/18/20 02/18/20 00:29 00:32 00:34 Temperature Pulse Rate 73 86 81 Respiratory Rate Blood Pressure 180/84 O2 Sat by Pulse 98 93 95 Oximetry 02/18/20 02/18/20 02/18/20 00:38 00:39 00:44 Temperature Pulse Rate 81 81 78 Respiratory Rate Blood Pressure O2 Sat by Pulse 94 96 99 Oximetry 02/18/20 02/18/20 02/18/20 00:46 00:49 00:54 Temperature Pulse Rate 77 80 84 Respiratory Rate Blood Pressure 184/79 O2 Sat by Pulse 95 98 Oximetry 02/18/20 02/18/20 02/18/20 00:57 00:59 01:03 Temperature Pulse Rate 83 78 77 Respiratory Rate Blood Pressure 169/74 170/79 O2 Sat by Pulse 96 Oximetry 02/18/20 02/18/20 02/18/20 01:04 01:05 01:09 Temperature Pulse Rate 75 74 80 Respiratory Rate Blood Pressure O2 Sat by Pulse 98 94 96 Oximetry 02/18/20 02/18/20 02/18/20 01:11 01:14 01:16 Temperature Pulse Rate 87 80 71 Respiratory Rate Blood Pressure 168/72 O2 Sat by Pulse 93 94 Oximetry 02/18/20 02/18/20 02/18/20 01:17 01:19 01:22 Temperature Pulse Rate 80 82 76 Respiratory Rate Blood Pressure O2 Sat by Pulse 94 93 94 Oximetry 02/18/20 02/18/20 02/18/20 01:24 01:28 01:29 Temperature Pulse Rate 75 84 89 Respiratory Rate Blood Pressure O2 Sat by Pulse 93 94 93 Oximetry 02/18/20 02/18/20 02/18/20 01:32 01:33 01:34 Temperature Pulse Rate 77 82 81 Respiratory Rate Blood Pressure 150/75 O2 Sat by Pulse 94 94 Oximetry 02/18/20 02/18/20 02/18/20 01:39 01:44 01:48 Temperature Pulse Rate 83 83 77 Respiratory Rate Blood Pressure 167/77 O2 Sat by Pulse 98 99 Oximetry 02/18/20 02/18/20 01:49 01:50 Temperature Pulse Rate 83 80 Respiratory Rate Blood Pressure O2 Sat by Pulse 95 94 Oximetry - Exam Breasts: deferred Cardiovascular: Regular rate Lungs: Normal air movement Abdomen: Present: normal appearance, soft Vulva: both: normal Uterus: Present: normal FHR: category 1 Uterine Contraction Monitor Mode: Internal Cervical Dilatation: 7.5 Cervical Effacement Percentage: 70 station: -1 Uterine Contraction Pattern: Regular Deep Tendon Reflex Grade: Normal +2 - Labs Labs: Abnormal Labs 02/17/20 02/17/20 02/17/20 03:25 03:25 03:25 RBC 3.64 L Hgb 7.8 L Hct 23.9 L MCV 66 L MCH 22 L RDW 19.1 H Potassium 3.5 L Creatinine 0.4 L 0.4 L Glucose 111 H POC Glucose Magnesium Lactate Dehydrogenase 266 H Total Protein 6.0 L Albumin 3.2 L 02/17/20 02/17/20 02/17/20 09:40 15:30 16:19 RBC Hgb Hct MCV MCH RDW Potassium Creatinine Glucose POC Glucose 114 H Magnesium 3.70 H 4.20 H Lactate Dehydrogenase Total Protein Albumin 02/17/20 20:40 RBC Hgb Hct MCV MCH RDW Potassium Creatinine Glucose POC Glucose Magnesium 4.50 H Lactate Dehydrogenase Total Protein Albumin Laboratory Results - last 24 hr 02/17/20 02/17/20 02/17/20 01:22 03:25 03:25 WBC 6.3 RBC 3.64 L Hgb 7.8 L Hct 23.9 L MCV 66 L MCH 22 L MCHC 33 RDW 19.1 H Plt Count 226 Sodium Potassium Chloride Carbon Dioxide Anion Gap BUN Creatinine Estimated GFR BUN/Creatinine Ratio Glucose POC Glucose Uric Acid Calcium Magnesium Total Bilirubin AST ALT Alkaline Phosphatase Lactate Dehydrogenase Troponin T Total Protein Albumin Albumin/Globulin Ratio Urine Color Yellow Urine Turbidity Clear Urine pH 6.0 Ur Specific Denn[place] 1.021 Urine Protein 100 mg/dl Urine Glucose (UA) Neg Urine Ketones Neg Urine Blood Neg Urine Nitrite Neg Urine Bilirubin Neg Urine Urobilinogen 4.0 Ur Leukocyte Esterase Lg Urine WBC (Auto) 5.0 Urine RBC (Auto) 4.0 U Epithel Cells (Auto) 4.0 Urine Bacteria (Auto) 1+ Urine Mucus 1+ Syphilis IgG Antibody Blood Type A POSITIVE Antibody Screen Negative 02/17/20 02/17/20 02/17/20 03:25 03:25 03:25 WBC RBC Hgb Hct MCV MCH MCHC RDW Plt Count Sodium 138 Potassium 3.5 L Chloride 102.8 Carbon Dioxide 22 Anion Gap 17 BUN 7 Creatinine 0.4 L 0.4 L Estimated GFR > 60 > 60 BUN/Creatinine Ratio 18 Glucose 111 H POC Glucose Uric Acid 5.6 Calcium 8.9 Magnesium Total Bilirubin 0.30 AST 28 27 ALT 21 22 Alkaline Phosphatase 97 Lactate Dehydrogenase 266 H Troponin T Total Protein 6.0 L Albumin 3.2 L Albumin/Globulin Ratio 1.1 Urine Color Urine Turbidity Urine pH Ur Specific [place] Urine Protein Urine Glucose (UA) Urine Ketones Urine Blood Urine Nitrite Urine Bilirubin Urine Urobilinogen Ur Leukocyte Esterase Urine WBC (Auto) Urine RBC (Auto) U Epithel Cells (Auto) Urine Bacteria (Auto) Urine Mucus Syphilis IgG Antibody Nonreactive Blood Type Antibody Screen 02/17/20 02/17/20 02/17/20 09:40 09:40 15:30 WBC RBC Hgb Hct MCV MCH MCHC RDW Plt Count Sodium Potassium Chloride Carbon Dioxide Anion Gap BUN Creatinine Estimated GFR BUN/Creatinine Ratio Glucose POC Glucose Uric Acid Calcium Magnesium 3.70 H 4.20 H Total Bilirubin AST ALT Alkaline Phosphatase Lactate Dehydrogenase Troponin T < 0.010 Total Protein Albumin Albumin/Globulin Ratio Urine Color Urine Turbidity Urine pH Ur Specific [place] Urine Protein Urine Glucose (UA) Urine Ketones Urine Blood Urine Nitrite Urine Bilirubin Urine Urobilinogen Ur Leukocyte Esterase Urine WBC (Auto) Urine RBC (Auto) U Epithel Cells (Auto) Urine Bacteria (Auto) Urine Mucus Syphilis IgG Antibody Blood Type Antibody Screen 02/17/20 02/17/20 02/17/20 16:19 20:40 21:25 WBC RBC Hgb Hct MCV MCH MCHC RDW Plt Count Sodium Potassium Chloride Carbon Dioxide Anion Gap BUN Creatinine Estimated GFR BUN/Creatinine Ratio Glucose POC Glucose 114 H 93 Uric Acid Calcium Magnesium 4.50 H Total Bilirubin AST ALT Alkaline Phosphatase Lactate Dehydrogenase Troponin T Total Protein Albumin Albumin/Globulin Ratio Urine Color Urine Turbidity Urine pH Ur Specific [place] Urine Protein Urine Glucose (UA) Urine Ketones Urine Blood Urine Nitrite Urine Bilirubin Urine Urobilinogen Ur Leukocyte Esterase Urine WBC (Auto) Urine RBC (Auto) U Epithel Cells (Auto) Urine Bacteria (Auto) Urine Mucus Syphilis IgG Antibody Blood Type Antibody Screen
[2020-02-18] MEDS: AMPICILLIN/NS 1 GM/50 ML 1 GM/50 ML BAG IV SCH (02:00)
[2020-02-18] MEDS ORDERED: BUPIVACAINE/PF (0.25%) 2.5 MG/ML 10 ML VIAL INFILTRATI ONE (03:10)
[2020-02-18] MEDS: fentaNYL-BUPIV 2 MCG/ML-0.125% 200 MCG/100 ML BAG EPIDURAL SCH (03:10)
[2020-02-18] MEDS ORDERED: LIDOCAINE (2%) 20 MG/1 ML VIAL 20 ML MDV INFILTRATI ONE (03:49)
[2020-02-18] MEDS ORDERED: CARBOPROST TROMETHAMINE 250 MCG/1 ML INJ IM ONE (04:45)
[2020-02-18] MEDS ORDERED: FUROSEMIDE 20 MG/2 ML INJ IV ONE (04:46)
[2020-02-18] MEDS ORDERED: LOPERAMIDE 2 MG CAP PO PRN (04:46)
[2020-02-18] MEDS ORDERED: PROMETHAZINE 25 MG RECT SUPP PR PRN (04:51)
[2020-02-18] MEDS ORDERED: BENZOCAINE/MENTHOL 20/0.5% TOP SPRAY 56 GM TP PRN (04:51)
[2020-02-18] MEDS ORDERED: PROMETHAZINE 25 MG TAB PO PRN (04:51)
[2020-02-18] MEDS ORDERED: ACETAMINOPHEN 325 MG TAB PO PRN (04:51)
[2020-02-18] MEDS ORDERED: WITCH HAZEL/ GLYCERIN PAD TP PRN (04:51)
[2020-02-18] MEDS ORDERED: LANOLIN/ZINC/DIMETHICONE (LANSINOH) 7 GM TP PRN (04:51)
[2020-02-18] MEDS ORDERED: MAGNESIUM HYDROXIDE (MOM) ORAL LIQD UDC PO PRN (04:51)
[2020-02-18] MEDS ORDERED: ONDANSETRON 4 MG/2 ML INJ IV PRN (04:51)
[2020-02-18] MEDS ORDERED: diphenhydrAMINE 25 MG CAP PO PRN (04:51)
[2020-02-18] MEDS ORDERED: OXYTOCIN 20 UNIT/1000ML DRIP 20 UNITS/1,000 ML BAG IV SCH (05:00)
--- NOTE | 2020-02-18 05:28 | Procedure Note ---
OB Delivery Note - Delivery Date of Delivery: 02/18/20 Surgeon: MAGUI MARK Supervisor [employer]: DIANA GONZALEZ Estimated blood loss: other (800ml) - Vaginal Delivery presentation: vertex Delivery position: OA Intrapartum events: preeclampsia, hemorrhage, other(please specify) (GDM) Delivery induction: oxytocin Delivery augmentation: rupture of membranes Delivery monitor: external FHT, external uterine, internal FHT, internal uterine Route of delivery: Delivery placenta: spontaneous Delivery cord: 3 umbilical vessels Episiotomy: none Delivery laceration: none Anesthesia: epidural Delivery comments: of male over intact perineum. Nuchal cord X1 loose, easily reduced. to mother's chest for skin to skin. Cord clamped and cut and infant handed to [facility] team for evaluation. Spontaneous delivery of placenta , intact, complete, 3 vessels noted. Perineum and vagina inspected. No lacerations noted. Brisk bleeding noted after delivery of placenta. Bleeding stopped after interventions: fundal massage, 800mcg Cytotec rectal, 250mcg Hemabate IM, and Pitocin. Hurst reinserted d/t being on magnesium for X24 hrs for pre e. Urine noted to be blood tinged before delivery, but after Hurst reinserted is clear. Apgars 8,8. Weight 8-14. EBL 800 ml. Sponges and instruments counted X2 with ladle builder and correct X2. Mother and left in stable condition in care of RN and [facility] teams. Dr. Mark was present for and readily available during delivery.
[2020-02-18] MEDS: IBUPROFEN 800 MG TAB PO SCH ×3 (05:40→22:56)
[2020-02-18 08:15] LABS: Hematocrit 25.1 % (30.3-42.9); Hemoglobin 7.9 gm/dl (10.1-14.3)
--- NOTE | 2020-02-18 09:27 | Post Anesthesia Evaluation ---
- Post Anesthesia Evaluation Patient Participated: Yes Airway Patent: Yes Stable Respiratory Function: Yes Nausea/Vomiting: No Temp > 96.8F: Yes Pain Manageable: Yes Adequeate Hydration: Yes Anesthesia Complications: No Block Receding Appropriately: Yes Patient on Ventilator: No
[2020-02-18] MEDS: NIFEdipine XL 60 MG TAB PO SCH (10:41)
[2020-02-18] MEDS: FERROUS SULFATE 325 MG TAB PO SCH ×2 (10:41→20:53)
[2020-02-18 15:30] LABS: Hematocrit 22.7 % (30.3-42.9); Hemoglobin 7.4 gm/dl (10.1-14.3)
[2020-02-18] MEDS ORDERED: diphenhydrAMINE 50 MG CAP PO NR (22:00)
[2020-02-18] MEDS: MAGNESIUM SULFATE 40GM/1000ML 40 GM/1,000 ML BAG IV SCH (23:22)
[2020-02-19] MEDS: DOCUSATE SODIUM 100 MG CAP PO SCH ×4 (05:20→21:30)
[2020-02-19] MEDS ORDERED: FUROSEMIDE 40 MG/4 ML INJ IV ONE (05:26)
--- NOTE | 2020-02-19 05:35 | Progress Note ---
Assessment and Plan Pt in good spirits this morning. Denies any ALEMAN, blurred vision, chest pain. C/O tightness and swelling in bothe legs. Lasix ordered, to be given after transfer. BP 140-120/70-60 FF below umb Lochia small Perineum intact. H&H 01/09 stable chronic anemia Asymptomatic. Doing well s/p vag delivery and PP MGSO4. P: transfer to M/B with orders Subjective - Subjective Date of service: 02/19/20 (pt preparing to move to PP unit) Principal diagnosis: Day # 1 s/p ; PreE; s/p MGSO$ X 24h PP Patient reports: appetite normal, voiding normally, pain well controlled, ambulating normally Lambert: doing well Objective - Vital Signs Latest vital signs: Vital Signs Temp Pulse Resp BP BP Pulse Ox 02/19/20 04:07 77 123/72 02/19/20 03:38 71 146/64 02/19/20 03:07 83 110/74 02/19/20 02:37 77 130/68 02/19/20 02:07 73 139/69 02/19/20 01:57 98.5 F 18 02/19/20 01:55 76 136/85 02/19/20 01:37 78 143/68 02/19/20 01:07 83 133/68 02/19/20 00:37 77 129/64 02/19/20 00:26 81 130/60 02/18/20 23:37 76 130/60 02/18/20 23:07 80 144/71 02/18/20 22:37 78 136/79 02/18/20 22:07 78 144/67 02/18/20 21:37 82 158/67 02/18/20 21:07 81 166/72 02/18/20 20:53 83 148/67 02/18/20 20:45 83 148/67 02/18/20 20:37 85 195/82 02/18/20 20:15 98.3 F 02/18/20 20:07 81 146/67 02/18/20 19:36 77 137/67 02/18/20 19:18 98 H 98 02/18/20 19:17 82 179/79 02/18/20 19:13 85 99 02/18/20 19:08 84 99 02/18/20 19:03 80 99 02/18/20 18:58 80 96 02/18/20 18:57 85 93 02/18/20 18:53 84 95 02/18/20 18:51 86 94 02/18/20 18:48 89 96 02/18/20 18:47 80 159/77 02/18/20 18:46 81 93 02/18/20 18:43 82 97 02/18/20 18:38 89 98 02/18/20 18:33 92 H 99 02/18/20 18:32 90 145/90 02/18/20 18:28 85 96 02/18/20 18:23 74 98 02/18/20 18:20 82 93 02/18/20 18:18 78 100 02/18/20 18:13 81 100 02/18/20 18:08 78 100 02/18/20 18:03 80 99 02/18/20 17:58 78 98 02/18/20 17:53 84 99 02/18/20 17:48 80 99 02/18/20 17:46 81 126/61 02/18/20 17:43 76 100 02/18/20 17:38 82 100 02/18/20 17:37 98.5 F 20 02/18/20 17:33 80 99 02/18/20 17:31 81 133/63 02/18/20 17:28 110 H 99 02/18/20 17:23 90 96 02/18/20 17:20 92 H 90 02/18/20 17:18 91 H 98 02/18/20 17:17 85 124/71 02/18/20 17:13 73 96 02/18/20 17:08 78 97 02/18/20 17:03 79 99 02/18/20 17:01 79 130/59 02/18/20 16:58 85 98 02/18/20 16:53 82 99 02/18/20 16:48 81 99 02/18/20 16:46 79 124/60 02/18/20 16:43 89 99 02/18/20 16:38 86 99 02/18/20 16:33 86 98 02/18/20 16:31 82 122/59 90 02/18/20 16:28 81 100 02/18/20 16:23 78 98 02/18/20 16:18 78 98 02/18/20 16:16 81 122/61 02/18/20 16:13 83 98 02/18/20 16:08 81 99 02/18/20 16:03 85 98 02/18/20 16:01 83 122/73 02/18/20 15:58 84 99 02/18/20 15:53 84 98 02/18/20 15:25 90 99 02/18/20 15:20 82 100 02/18/20 15:16 95 H 126/57 02/18/20 15:15 90 98 02/18/20 15:10 90 96 02/18/20 15:05 90 97 02/18/20 15:01 93 H 133/76 02/18/20 15:00 90 98 02/18/20 14:55 94 H 97 02/18/20 14:50 85 98 02/18/20 14:46 85 141/67 02/18/20 14:45 84 98 02/18/20 14:40 85 98 02/18/20 14:35 88 98 02/18/20 14:32 94 H 94 02/18/20 14:31 85 141/63 02/18/20 14:30 92 H 98 02/18/20 14:25 90 97 02/18/20 14:20 87 97 02/18/20 14:16 97 H 131/60 02/18/20 14:15 98 H 95 02/18/20 14:10 93 H 97 02/18/20 14:05 89 98 02/18/20 14:02 90 115/55 02/18/20 14:00 85 99 02/18/20 13:55 79 99 02/18/20 13:50 85 99 02/18/20 13:46 77 153/65 02/18/20 13:45 82 100 02/18/20 13:40 81 99 02/18/20 13:35 78 100 02/18/20 13:31 72 150/75 02/18/20 13:30 70 99 02/18/20 13:25 74 99 02/18/20 13:20 71 99 02/18/20 13:16 75 145/63 02/18/20 13:15 73 99 02/18/20 13:10 71 99 02/18/20 13:05 74 100 02/18/20 13:02 83 137/63 02/18/20 13:00 82 100 02/18/20 12:59 80 94 02/18/20 12:55 82 98 02/18/20 12:50 79 98 02/18/20 12:45 74 100 02/18/20 12:40 85 97 02/18/20 12:35 72 96 02/18/20 12:31 75 105/51 02/18/20 12:30 72 98 02/18/20 12:29 72 94 02/18/20 12:25 73 93 02/18/20 12:23 72 94 02/18/20 12:20 77 95 02/18/20 12:16 73 115/57 94 02/18/20 12:15 70 95 02/18/20 12:10 78 94 02/18/20 12:09 76 94 02/18/20 12:05 71 95 02/18/20 12:01 74 120/56 94 02/18/20 12:00 98.3 F 74 18 93 02/18/20 11:56 77 94 02/18/20 11:55 74 95 02/18/20 11:50 75 93 02/18/20 11:46 70 121/57 02/18/20 11:45 78 95 02/18/20 11:42 76 93 02/18/20 11:40 77 97 02/18/20 11:35 77 98 02/18/20 11:34 77 94 02/18/20 11:32 73 117/67 02/18/20 11:30 76 99 02/18/20 11:25 95 H 97 02/18/20 11:20 80 97 02/18/20 11:16 70 168/66 02/18/20 11:15 74 100 02/18/20 11:13 81 91 02/18/20 11:10 76 98 02/18/20 11:05 90 99 02/18/20 11:02 70 186/83 02/18/20 11:00 71 95 02/18/20 10:55 71 100 02/18/20 10:41 76 161/77 02/18/20 10:32 80 161/77 02/18/20 10:31 77 98 02/18/20 10:26 72 96 02/18/20 10:21 70 97 02/18/20 10:17 76 136/62 02/18/20 10:16 73 96 02/18/20 10:11 70 97 02/18/20 10:06 71 97 02/18/20 10:01 71 163/72 100 02/18/20 10:00 89 94 02/18/20 09:56 77 97 02/18/20 09:51 77 97 02/18/20 09:47 67 165/71 02/18/20 09:46 65 98 02/18/20 09:41 75 97 02/18/20 09:36 78 96 02/18/20 09:31 73 159/68 99 02/18/20 09:26 71 99 02/18/20 09:16 72 159/72 02/18/20 09:01 76 152/70 02/18/20 08:47 75 153/66 02/18/20 08:31 70 136/62 02/18/20 08:17 81 134/60 02/18/20 08:01 78 146/65 02/18/20 07:46 78 146/67 02/18/20 07:31 81 141/62 02/18/20 07:28 98.5 F 79 18 140/67 02/18/20 07:19 79 140/67 02/18/20 06:39 83 99 02/18/20 06:34 79 98 02/18/20 06:31 75 185/60 02/18/20 06:29 79 96 02/18/20 06:24 86 98 02/18/20 06:19 81 100 02/18/20 06:16 83 177/72 02/18/20 06:14 87 98 02/18/20 06:09 85 99 02/18/20 06:04 83 99 02/18/20 06:02 83 170/68 02/18/20 05:59 78 98 02/18/20 05:58 75 93 02/18/20 05:54 83 99 02/18/20 05:49 87 97 02/18/20 05:47 84 161/74 02/18/20 05:44 95 H 100 02/18/20 05:39 84 99 02/18/20 05:34 89 98 Intake and Output 02/18/20 02/18/20 02/19/20 14:59 22:59 06:59 Intake Total 1000 240 Output Total 2400 2300 400 Balance -2400 -1300 -160 Intake: IV 1000 240 MAGNESIUM SULFATE 40GM/ 1000 240 1000ML 40 gm In 1,000 ml @ 2 GM/HR 50 mls/hr IV DIRECT MARY Rx#:[id number] Output: Urine 2400 2300 400 Indwelling Catheter 2400 2300 400 Other: Total, Output Amount 300 400 100 - Exam Breasts: Present: normal Cardiovascular: Present: Regular rate Lungs: Present: Clear to auscultation Abdomen: Present: normal appearance, soft Uterus: Present: normal, fundal height below umbilicus Extremities: Present: normal, edema Deep Tendon Reflex Grade: Normal but brisk +3 Incision: Present: normal, dry, intact - Labs Labs: Abnormal lab results 02/18/20 02/18/20 02/18/20 Range/Units 06:28 10:54 15:15 Hgb 7.9 L (10.1-14.3) gm/dl Hct 25.1 L (30.3-42.9) % Magnesium 4.70 H 4.30 H (1.7-2.3) mg/dL 02/18/20 02/18/20 Range/Units 15:15 20:35 Hgb 7.4 L (10.1-14.3) gm/dl Hct 22.7 L (30.3-42.9) % Magnesium 2.90 H (1.7-2.3) mg/dL
[2020-02-19] MEDS ORDERED: DIPHtheria,PERTUSSIS(ACELL),TETANUS VACCINE/PF 0.5 ML VIAL IM ONE (06:00)
--- NOTE | 2020-02-19 07:10 | Ultrasound Report ---
BIOPHYSICAL PROFILE HISTORY: Evaluate biophysical following presentation. FINDINGS: A single viable intrauterine has a normal biophysical profile of 01/26. The placenta is anter iorly located, presentation is vertex. Amniotic fluid index is normal at 7.8 cm. heart tones 150 bpm. IMPRESSION: 1. Biophysical profile 01/26. 2. presentation Vertex. Signer Name: Brody Solitario MD Signed: 02/19/2020 7:05 AM Workstation Name: [id number]
--- NOTE | 2020-02-19 11:20 | Event Note ---
Date: 02/19/20 Patient's chart reviewed, blood pressure control is much improved on current medical therapy. 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
[2020-02-19] MEDS: NIFEdipine XL 60 MG TAB PO SCH (11:48)
[2020-02-19] MEDS: PRENATAL VIT27-FE FUMARATE-FOLIC ACID VIT TAB PO SCH (11:49)
[2020-02-19] MEDS: FERROUS SULFATE 325 MG TAB PO SCH ×3 (11:52→21:24)
[2020-02-19] MEDS: IBUPROFEN 800 MG TAB PO SCH ×3 (11:57→23:30)
[2020-02-19] MEDS ORDERED: FUROSEMIDE 20 MG/2 ML INJ ONE (12:02)
--- NOTE | 2020-02-19 22:58 | XRay Report ---
CHEST 2 VIEWS INDICATION: Pneumonia. Chest pain.. COMPARISON: 02/17/2020. FINDINGS: Support devices: None. Heart: Heart size is borderline. Lungs/Pleura: No acute air space or interstitial disease. No significant pleural effusion. IMPRESSION: Borderline heart size. Signer Name: Brody Solitario MD Signed: 02/19/2020 10:54 PM Workstation Name: [id number]
[2020-02-20] MEDS ORDERED: FUROSEMIDE 20 MG/2 ML INJ IV ONE (00:52)
--- NOTE | 2020-02-20 01:13 | Event Note ---
Date: 02/20/20 Called to see patient secondary to complaints of chest pain. Patient initially states she feels okay but did state that she feels that she needs to cough something up from her chest. Patient denies any chest pressure or generalized pain or pain radiating to her extremities. Patient does have a dry cough. Vital signs are stable she is afebrile heart regular rate rhythm with sounds like a 2 out of 6 systolic ejection murmur. Lungs clear bilaterally Abdomen is soft Extremities patient has 1+ /2+ lower extremity edema Checks x-ray no change from previous with no pulmonary abnormality seen with slightly enlarged cardiac shadow EKG appears similar to previous EKG but computer reports possible prolonged QT interval polarization possibly suggestive of ischemia Assessment Patient is day 1 with a history of cardiomyopathy in the past, evaluation by cardiology and progress with a echocardiogram scheduled for tomorrow. Exam within normal limits. Lab reports as above. Plan we will repeat 20 mg IV and reassess patient's status
--- NOTE | 2020-02-20 08:17 | Progress Note ---
Assessment and Plan patient resting, no complaints. denies chest pain at this time. most recent H&H 7.4/22.7, denies s/s anemia. b/p 130-140/50-70's. lochia scant, fundus firm. - Patient Problems (1) BMI 45.0-49.9, adult Current Visit: Yes Status: Acute (2) Cardiomyopathy Current Visit: Yes Status: Acute Plan to address problem: Cardiology following, ECHO ordered for today. (3) Chest pain Current Visit: Yes Status: Resolved (4) Spontaneous vaginal delivery Current Visit: Yes Status: Acute Plan to address problem: continue pathway Subjective - Subjective Date of service: 02/20/20 Principal diagnosis: Day # 2 s/p ; PreE; s/p MGSO4 X 24h PP; ECHO scheduled Interval history: EDC Confirmation: 03/10/2020 Past History : 6 Term Births: 1 Premature Births: 3 Living Children: 4 Para: 4 Mult. Births: 0 Prev : 0 Prev. attempt? 0 Aborta: 1 Elect. Ab: 1 Spont. Ab: 0 Ectopics: 0 # 1 Delivery date: 1999 Weeks Gestation: 40 Delivery type: Infant Sex: Female weight: 7-13 # 2 Delivery date: 2006 Weeks Gestation: 35 Delivery type: Anesthesia type: epidural Sex: Male weight: 7-15 Comments: IOL - large for dates, PP cardiomyopathy # 3 Delivery date: 2006 Weeks Gestation: 4 Delivery type: EAB Comments: medical # 4 Delivery date: 2007 Weeks Gestation: 35 Delivery type: Anesthesia type: epidural Infant Sex: Male weight: 7-13 Comments: IOL- Pe-E, PP cardiomyopathy # 5 Delivery date: 2014 Weeks Gestation: 32 Delivery type: Sex: Female weight: 9-0 Comments: IOL - large for dates, PP cardiomyopathy Past Medical History: Obesity Cardiomyopathy hx Pre-e w/ previous Past Surgical History: Cholecystectomy (2013) Gangilar cyst (2011) Rotator cuff surgery x 3 [place] Sugery R hand Past Medical History 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 of genital herpes: no Partner hx. of genital herpes: no Varicella/Chicken Pox Status: Unknown TB Risk: no Infection History Comments: Trich Genetic History ADVANCED MATERNAL AGE Congenital Heart Defect: Mom: no Dad: no Pao Disease: Mom: no Dad: no Thalassemia Mom: no Dad: no Neural Tube Defect Mom: no Dad: no Down's Syndrome Mom: no Dad: no Juan-Sachs Mom: no Dad: no Sickle Cell Disease/Trait Mom: no Dad: no Hemophilia Mom: no Dad: no Muscular Dystrophy Mom: no Dad: no Cystic Fibrosis Mom: no Dad: no Coal Chorea Mom: no Dad: no Mental Retardation Mom: no Dad: no Fragile X Mom: no Dad: no Other Genetic/Chromosomal Disorder Mom: no Dad: no Child w/other defect Mom: no Dad: no Enviromental Exposures Enviromental Exposures Reviewed Xray Exposure: no Medication, drug, or alcohol use since LMP: no Chemical/Other Exposure: no Exposure to Cat Liter: no Hx of Parvovirus (Fifth Disease): no Occupational Exposure to Children: none 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 Current Allergies (reviewed today): DEMEROL (Critical) MORPHINE (Critical) * BEE STINGS (Critical) PEANUT (Critical) Patient reports: appetite normal, voiding normally, pain well controlled, ambulating normally, no dizzy ambulation, no nauseated : doing well, bottle feeding Objective - Vital Signs Latest vital signs: Vital Signs Temp Pulse Resp BP BP Pulse Ox 02/20/20 04:30 98 F 89 16 145/65 02/20/20 00:00 99 F 81 18 148/70 02/19/20 22:02 91 H 129/62 02/19/20 16:59 99.5 F 86 18 144/60 98 02/19/20 13:00 98.6 F 81 18 142/60 98 02/19/20 08:17 97.7 F 78 18 136/51 100 Intake and Output 02/19/20 02/20/20 02/20/20 23:59 07:59 15:59 Intake Total 900 Balance 900 Intake: Oral 360 Intake, Free Water 540 Other: Total, Intake Amount 360 # Voids Void 1 1 - Exam Breasts: Present: normal Cardiovascular: Present: Regular rate Lungs: Present: Clear to auscultation, Normal air movement Abdomen: Present: normal appearance, soft Vulva: both: normal Uterus: Present: normal, firm, fundal height at umbilicus Extremities: Present: normal Deep Tendon Reflex Grade: Normal +2
[2020-02-20] MEDS: NIFEdipine XL 60 MG TAB PO SCH (09:56)
[2020-02-20] MEDS: DOCUSATE SODIUM 100 MG CAP PO SCH ×2 (09:57→22:07)
[2020-02-20] MEDS: PRENATAL VIT27-FE FUMARATE-FOLIC ACID VIT TAB PO SCH (09:57)
[2020-02-20] MEDS: IBUPROFEN 800 MG TAB PO SCH ×3 (09:57→23:24)
[2020-02-20] MEDS: FERROUS SULFATE 325 MG TAB PO SCH ×3 (09:57→20:59)
[2020-02-21] MEDS: NIFEdipine XL 60 MG TAB PO SCH (10:06)
[2020-02-21] MEDS: FERROUS SULFATE 325 MG TAB PO SCH (10:06)
[2020-02-21] MEDS: PRENATAL VIT27-FE FUMARATE-FOLIC ACID VIT TAB PO SCH (10:06)
[2020-02-21] MEDS: DOCUSATE SODIUM 100 MG CAP PO SCH (10:31)
--- NOTE | 2020-02-21 14:45 | Event Note ---
Date: 02/21/20 (Pt doing well and desires to go home.) Pt is doing well at this time. Denies chest pain. States that she is ready to go home. Spoke with pt regarding need for cardiology to see her one more time, or state that it is okay for her to go home. From a OB standpoint, she is stable for discharge. Will await cardiology recommendation for discharge disposition.
[2020-02-21 17:05] VITALS: BP 148/67
--- NOTE | 2020-02-21 18:12 | Discharge Summary ---
Providers - Providers Date of Admission: 02/17/20 02:04 Date of discharge: 02/21/20 (Pt has very strong desire to go home.) Attending physician: FRANCK HILARIO 02/17/20 08:11 Consult to Cardiology [CONS] Urgent Consulting Provider: KENYETTA GARCIA Reason For Exam: hx of cardiomyopathy, chest pain Primary care physician: FRANCK HILARIO Hospitalization Reason for admission: induction of labor, other (chest pain) Delivery: Episiotomy: none Laceration: none Other procedures: none complications: none Discharge diagnosis: IUP at term delivered [place] baby: male Pertinent studies: Pt denies ALEMAN, blurred vision, spots before her eyes, chest pain, shortness of breath, upper abdominal pain. Spoke with Dr. Cartagena regarding recommendations from the cardiology standpoint if patient can be discharged home. States that he is giving a verbal order for patient to go home and that she is stable for discharge home from the cardiology standpoint, and that she is to follow up with her primary care cardiology upon discharge home. Pt states that she is ready to be discharged home and does not wish to stay in the hospital any longer. Discharge order to be written. Discussed that patient is to follow up with OB and cardiology upon discharge. Pt states that she already has a follow up appointment with cardiology and will keep that scheduled appointment. Pt also states that she does not feel like she needs blood pressure medication and states that she does not want to take that medication at home. Also pt with an H/H 7.4/22.7. Explained to patient that she will need to be prescribed iron to take upon discharge and pt stated that she already has iron at home and did not want another prescription. Hospital course: S: Pt states that she is doing well and would like to be discharged home. She is ambulating, voiding, and passing flatus okay. BC: BTL. States that she is no longer having chest pain. O: VSS. Unable to feel fundus d/t body habitus. Minimal bleeding noted. H/H 7.4/22.7. Anemia from and delivery. Pt asymptomatic. A: 34 y.o. s/p and mag infusion for pre e. No longer with c/o chest pain. Stable for discharge home from OB and Cardiology standpoint. P: Discharge home with instructions. To schedule a blood pressure check in the office in 1 week. To schedule a circumcision appointment in the office in 1 week. To schedule a visit in the office in 4 weeks. Continue to take with iron at home. Condition at discharge: Good Disposition: DC-01 TO HOME OR SELFCARE Plan - Discharge Medications Prescriptions: Lidocain2.5%/Prilocai2.5% [Emla] 1 applic TP ONCE #1 tube labetaloL [Labetalol 100mg TAB] 300 mg PO BID #90 tablet Ibuprofen [Motrin] 800 mg PO Q8HR PRN #60 tablet PRN Reason: Pain, Moderate (4-6) - Provider Discharge Summary Activity: routine, no sex for 6 weeks, no heavy lifting 4 weeks, no strenuous exercise Diet: routine Instructions: routine Additional instructions: [] Smoking cessation referral if applicable(refer to patient education folder for contact #) [] Refer to [facility] Book[facility] Call your doctor immediately for: * Fever > 100.5 * Heavy vaginal bleeding ( >1 pad per hour) * Severe persistent headache * Shortness of breath * Reddened, hot, painful area to leg or breast * Drainage or odor from incision. * Keep incision clean and dry at all times and follow doctor's instructions regarding bathing/showering - Follow up plan Follow up: FRANCK HILARIO MD [Primary Care Provider] - 7 Days (Congratulations! Please schedcule a blood pressure check in the office in 1 week. Please schedule a circumcision appointment in the office in 1 week. You have been prescribed EMLA cream. Please do not use this cream at home but bring it with you to your son's circumcision appointment. If you have any questions or concerns after discharge, please do not hesitate to call the office at [phone]. ) Forms: [facility] Discharge Summary
== END 2020-02-21 18:52 | disposition home or self-care (01) | DRG 805 ==
LOC: TRG 00:55 → APU 01:00 → TRG 02:03 → LD 02:04 → OB 02-19 06:42
PROVIDERS: ADMIT Obstetrics & Gynecology; ATTEND Obstetrics & Gynecology
PROC: 10E0XZZ Delivery of Products of Conception, External Approach (ICD-10-PCS; principal; 2020-02-18)
PROC: 3E0R3BZ Introduction of Anesthetic Agent into Spinal Canal, Percutaneous Approach (ICD-10-PCS; 2020-02-18)
PROC: 00HU33Z Insertion of Infusion Device into Spinal Canal, Percutaneous Approach (ICD-10-PCS; 2020-02-18)
PROC: 10907ZC Drainage of Amniotic Fluid, Therapeutic from Products of Conception, Via Natural or Artificial Opening (ICD-10-PCS; 2020-02-18)
PROC: 10H07YZ Insertion of Other Device into Products of Conception, Via Natural or Artificial Opening (ICD-10-PCS; 2020-02-18)
PROC: 3E00X4Z Introduction of Serum, Toxoid and Vaccine into Skin and Mucous Membranes, External Approach (ICD-10-PCS; 2020-02-19)
DX: O24.420 Gestational diabetes mellitus in childbirth, diet controlled (principal); O99.42 Diseases of the circulatory system complicating childbirth; Z37.0 Single live birth; I42.9 Cardiomyopathy, unspecified; O72.1 Other immediate postpartum hemorrhage; O11.4 Pre-existing hypertension with pre-eclampsia, complicating childbirth; E66.9 Obesity, unspecified; O99.214 Obesity complicating childbirth; O99.824 Streptococcus B carrier state complicating childbirth; O69.81X0 Labor and delivery complicated by cord around neck, without compression, not applicable or unspecified; O99.52 Diseases of the respiratory system complicating childbirth; R07.89 Other chest pain; O99.02 Anemia complicating childbirth; D50.9 Iron deficiency anemia, unspecified; J45.909 Unspecified asthma, uncomplicated; Z3A.36 36 weeks gestation of pregnancy; Z88.8 Allergy status to other drugs, medicaments and biological substances; Z88.6 Allergy status to analgesic agent; Z91.010 Allergy to peanuts; Z23 Encounter for immunization
CPT/HCPCS: 36415; 71045; 71046; 76815; 76819; 80053; 81001; 82565; 82962; 83615; 83735; 84450; 84460; 84484; 84550; 85014; 85018; 85027; 86592; 86850; 86900; 86901; 88307; 93005; 93306; G0378; J0290; J0595; J1815; J1940; J2590; J3010; J3475; J3490; J7120; Q0169; Q0177